=== PATIENT | male | born 1950 | race Caucasian/White ===

== ENCOUNTER 2018-10-08 16:05 | Inpatient (IN) | payer OTHER ==
[2018-10-08 16:11] VITALS: BMI 47.9
--- NOTE | 2018-10-08 16:13 | PDOC ---
Rapid Medical Evaluation Chief Complaint: Shortness of Breath Time Seen by Provider: 10/08/18 16:09 Medical Evaluation: 10/08/18 16:10 The patient presents to the ED: worsening weakness, sob, and dizziness, hx of copd, chf On brief exam: 92 % rA, decreased bs at bases Pt ordered for : labs, o2, cxr, ekg Pt to proceed to the ED Discharge Disposition - Diagnosis Shortness of breath - Referrals - Patient Instructions - Post Discharge Activity
--- NOTE | 2018-10-08 17:00 | PDOC ---
History of Present Illness - General Chief Complaint: Shortness of Breath Stated Complaint: SHORTNESS OF BREATH, WEAK Time Seen by Provider: 10/08/18 16:09 History Source: Patient Exam Limitations: No Limitations - History of Present Illness Initial Comments: 10/08/18 16:59 The patient is a 67M with a PMH of COPD and asthma who presents to the ER for oxygen. The patient was with his who is being evaluated and asked for oxygen as he is on 2L NC at home. He was told he had to register in order to get oxygen and so he registered. He denies any acute complaints including CP, SOB, fevers, chills, nausea, vomiting, cough. Past History - Past Medical History Allergies/Adverse Reactions: Allergies Allergy/AdvReac Type Severity Reaction Status Date / Time No Known Allergies Allergy Verified 10/08/18 16:11 COPD: Yes (CHF) HTN: Yes Hypercholesterolemia: Yes Other medical history: INSOMNIA, INTUBATED 03/2017 FOR SOB - Surgical History Appendectomy: Yes - Suicide/Smoking/Psychosocial Hx Smoking History: Never smoked Information on smoking cessation initiated: No Hx Alcohol Use: No Drug/Substance Use Hx: No Substance Use Type: None Review of Systems - Review of Systems Able to Perform ROS?: Yes Comments:: 10/08/18 17:06 GENERAL/CONSTITUTIONAL: No fever or chills. No weakness. HEAD, EYES, EARS, NOSE AND THROAT: No change in vision. No ear pain or discharge. No sore throat. CARDIOVASCULAR: No chest pain, palpitations, or lightheadedness. RESPIRATORY: No cough, wheezing, shortness of breath, or hemoptysis. GASTROINTESTINAL: No nausea, vomiting, diarrhea, constipation, or abdominal pain. GENITOURINARY: No dysuria, frequency, hematuria, or change in urination. MUSCULOSKELETAL: No joint or muscle swelling or pain. No neck or back pain. SKIN: No rash or lesions. NEUROLOGIC: No headache, numbness, tingling, focal weakness, loss of consciousness, or change in strength/sensation. Is the patient limited Estonian proficient: No *Physical Exam - Vital Signs Last Vital Signs Temp Pulse Resp BP Pulse Ox 98.4 F 75 18 130/55 L 92 L 10/08/18 16:07 10/08/18 16:07 10/08/18 16:07 10/08/18 16:07 10/08/18 16:07 - Physical Exam Comments: 10/08/18 17:06 GENERAL: Well developed, well nourished. Morbidly obese. Awake and alert. No acute distress. HEENT: Normocephalic, atraumatic. Hearing grossly normal. Moist mucous membranes. PERRLA, EOMI. No conjunctival pallor. Sclera are non-icteric. NECK: Supple. Full ROM. No JVD. CARDIOVASCULAR: Regular rate and rhythm. No murmurs, rubs, or gallops. PULMONARY: No evidence of respiratory distress. Lungs clear to auscultation bilaterally. No wheezing, rales or rhonchi. ABDOMINAL: Soft. Non-tender. Non-distended. No rebound or guarding. GENITOURINARY: No CVA tenderness bilaterally. MUSCULOSKELETAL: Normal range of motion at all joints. No bony deformities or tenderness. EXTREMITIES: Lips are blue-tinged. No cyanosis. No clubbing. No edema. No calf tenderness or swelling. SKIN: Warm and dry. Normal capillary refill. No rashes. No jaundice. NEUROLOGICAL: Alert, awake, appropriate. Cranial nerves 2-12 grossly intact. Normal speech. Gait is normal without ataxia with walker. PSYCHIATRIC: Cooperative. Good eye contact. Appropriate mood and affect. Heart Score/ECG Review #1 ECG reviewed & interpreted by me at: 17:27 General ECG Interpretation: Sinus Rhythm, Normal Rate, Normal Intervals, No acute ischemic changes Compared to previous ECG there are: Previous ECG unavail 10/08/18 17:28 NSR vent rate 75 SD 168 QRS 142 QTc 481 No STD or JOHNY No signs of acute ischemia RBBB noted PVC's noted No priors ED Treatment Course - LABORATORY CBC & Chemistry Diagram: 10/08/18 16:50 10/08/18 16:50 Medical Decision Making - Medical Decision Making 10/08/18 17:08 The patient is a 67M with a PMH of COPD who presents to the ER requesting oxygen as he is waiting for his to finish her evaluation. He denies any acute complaints. RME ordered labwork which we will continue as the patient later expressed that he has a history of pleural effusion. Pending labs, EKG, and CXR. 10/08/18 19:08 Labs show WILLIAM, hypokalemia, and CXR shows bibasilar consolidation. Will treat as COPD exacerbation and microblog for admission. 10/08/18 19:20 I have endorsed the pt to Dr. Irwin for admission under Dr. Marie. *DC/Admit/Observation/Transfer Diagnosis at time of Disposition: Shortness of breath, COPD with exacerbation - Discharge Dispostion Condition at time of disposition: Guarded Decision to Admit order: Yes - Referrals Referrals: ON STAFF,NOT [Primary Care Provider] - - Patient Instructions - Post Discharge Activity
[2018-10-08 17:01] LABS: BASO % 0.2 % (0-2.0); EOS % 1.2 % (0-4.5); HEMATOCRIT 48.5 % (35.4-49); HEMOGLOBIN 15.9 GM/dL (11.7-16.9); LYMPH % 5.8 % (8-40); MCH 30.8 pg (25.7-33.7); MCHC 32.7 g/dl (32.0-35.9); MEAN CELL VOLUME 94.2 fl (80-96); MEAN PLT VOLUME 11.4 fl (7.5-11.1); MONO % 6.5 % (3.8-10.2); NEUT % 86.3 % (42.8-82.8); PLATELET COUNT 197 K/MM3 (134-434); RBC 5.15 M/mm3 (4.00-5.60); RDW 14.3 % (11.9-15.9); WHITE BLOOD COUNT 15.1 K/mm3 (4.0-10.0)
[2018-10-08 17:26] LABS: URINE APPEARANCE CLEAR; URINE BILIRUBIN NEGATIVE (<2.0 mg/dL); URINE COLOR LTYELLOW; URINE GLUCOSE (UA) NEGATIVE (NEGATIVE); URINE KETONE NEGATIVE (NEGATIVE); URINE LEUK ESTERASE 1+ (NEGATIVE); URINE NITRITE NEGATIVE (NEGATIVE); URINE PROTEIN NEGATIVE (NEGATIVE); URINE UROBILINOGEN NEGATIVE mg/dL (0.2-1.0)
[2018-10-08 17:44] LABS: EPI CELLS RARE /HPF (FEW); URINE HYALINE CAST 14 /lpf
[2018-10-08 17:58] LABS: ALBUMIN 3.9 g/dl (3.4-5.0); CREATININE 1.7 mg/dL (0.55-1.3)
[2018-10-08] MEDS ORDERED: POTASSIUM CHLORIDE TABS 20 MEQ TABLET.ER (FP) PO ONE (18:12)
--- NOTE | 2018-10-08 18:15 | PDOC ---
Attending Attestation - Resident Resident Name: Medarod Schmitt - ED Attending Attestation I have performed the following: I have examined & evaluated the patient, The case was reviewed & discussed with the resident, I agree w/resident's findings & plan - HPI HPI: 10/08/18 18:14 Mr Almanzar is a 67 year old male with a significant past medical history of COPD ( on 2L O2) and asthma who presents to the emergency department with shortness of breath, requesting oxygen. The patient reports that he was sitting with his in the ED when he began to feel an onset of shortness of breath. The patient reports that he is usually on 2 liter of oxygen 24 hours a day. He denies any other symptoms. He denies any fever, chills, nausea, vomiting, diarrhea, constipation or urinary symptoms. He denies any chest pain, headache or dizziness. The patient denies any other complaints. 10/08/18 19:40 - Physicial Exam PE: 10/08/18 19:40 NAD, well appearing, eating comfortably, no respiratory distress, on supp O2. PERRL, EOMI, MMM, nl conjunctiva, anicteric; neck supple. lungs with decreased BS bilaterally, poor inspiratory effort. RRR, abdomen soft obese nontender. SPARKS x4, no focal neuro deficits. No peripheral edema. normal color for ethnicity, WWP. - Medical Decision Making 10/08/18 19:41 67 YOM with sob/ with similar sx being treated for pna Vital signs reviewed, wnl. placed on supp O2, borderline hypoxia noted on baseline 2 liters Prior notes reviewed, including admissions, discharges and consultations. laboratory results and imaging reviewed, basic labs and lytes wnl, notable for mild hypoK repleted with PO potassium, leukocytosis of 15K. UA_negative, unremarkable CXR_atelectasis vs consolidation vs effusion in left lung base, otherwise, enlarged silhouette Cardiac panel_neg trop, nonspecific elevations in ck level. low bnp, less likely fluid overload EKG normal sinus rhythm, no interval abnormalities, narrow QRS, ST and T wave segments and morphology normal. Nonspecific T wave abnormalities ED course: no acute events, remained stable and well appearing. Clinically improved after interventions, including duoneb, steroids, IV abx (cef/doxy), potassium repletion and fluids. Dispo: Admit for COPD exac vs pneumonia.. Discussed results and management plan with pt and family member at bedside, agree with impression and plan 10/08/18 19:43 10/08/18 19:43
[2018-10-08] MEDS ORDERED: KCL 10 MEQ IVPB 10 MEQ/100 ML INFUS.BAG IVPB ONE ×2 (18:34→19:59)
[2018-10-08] MEDS ORDERED: POTASSIUM CHLORIDE TABS 10 MEQ TABLET.ER (FP) ONE (18:35)
[2018-10-08 18:39] LABS: ALK PHOS 121 U/L (45-117); ANION GAP 10 MMOL/L (8-16); BILIRUBIN,TOTAL 0.8 mg/dL (0.2-1); BLOOD UREA NITROGEN 40 mg/dL (7-18); CHLORIDE 84 mmol/L (98-107); CO2 42 mmol/L (21-32); GLUCOSE,RANDOM 98 mg/dL (74-106); N-TERMINAL BNP 155.2 pg/ml (5-125); SGOT/AST 36 U/L (15-37); SGPT/ALT 38 U/L (13-61); SODIUM 136 mmol/L (136-145); TOT PROT 7.6 g/dl (6.4-8.2)
[2018-10-08] MEDS ORDERED: ALBUTEROL SO4 2.5/IPRATROPIUM 0.5 INH SOL 3 ML VIAL.NEB. NEB ONE ×2 (18:58→19:58)
[2018-10-08] MEDS ORDERED: methylPREDNISolone NA SUCC 125 MG/2 ML VIAL IVPUSH ONE (18:58)
[2018-10-08] MEDS ORDERED: CEFTRIAXONE 1,000 MG in DEXTROSE 5%-WATER - 50 ML IVPB ONE (18:58)
[2018-10-08] MEDS: KCL 10 MEQ IVPB 10 MEQ/100 ML INFUS.BAG IVPB SCH (19:05)
--- NOTE | 2018-10-08 19:21 | PN ---
Teaching Attending Note Name of Resident: Julian Talavera ATTENDING PHYSICIAN STATEMENT I saw and evaluated the patient. I reviewed the resident's note and discussed the case with the resident. I agree with the resident's findings and plan as documented. SUBJECTIVE: Patient is a 67 year old man with a PMH of COPD/asthma who presents to the ER for oxygen. The patient was with his who is being evaluated and asked for oxygen as he is on 2L NC at home. He was told he had to register in order to get oxygen and so he registered. He denies any acute complaints including CP, SOB, fevers, chills, nausea, vomiting, cough. He has had chronic weakness, gait instability and frequent falls - none of which have been investigated. Remembers that he is on a diuretic, but his does not remember any of his other medications. Unknown if he is on steroids. Uses a walker at home. OBJECTIVE: Alert and morbidly obese. Vital Signs Period Temp Pulse Resp BP Sys/Mason Pulse Ox Last 24 Hr 98.4 F 75 18 130/55 92 HEENT: No Jaundice, eye redness or discharge, PERRLA, EOMI. Normocephalic, atraumatic. External ears are normal and hearing is grossly intact. No nasal discharge. Neck: Supple, nontender. No palpable adenopathy or thyromegaly. No JVD Chest: Good effort. Diminished breath sounds in both bases. Heart: Regular. No S3, rub or murmur Abdomen: Not distended, soft, nontender and no HSM. No rebound or guarding. Normoactive bowel sounds. Ext: Peripheral pulses intact. No leg edema. Skin: Warm and dry. No petechiae, rash or ecchymosis. Neuro: Alert. Oriented x3. Unsteady gait. CN 2-12 grossly intact. Sensation grossly intact in all four extremities and DTR are symmetric. Current Medications Generic Name Dose Route Start Last Admin Trade Name Freq PRN Reason Stop Dose Admin Potassium Chloride 10 meq in 100 mls @ 100 mls/hr 10/08/18 18:15 Potassium Chloride 10 Meq Premix Ivpb - IVPB 10/08/18 20:14 Q60M YOHNANES Ceftriaxone Sodium 1,000 mg/ 50 mls @ 100 mls/hr 10/08/18 18:58 Dextrose IVPB 10/08/18 19:27 ONCE ONE Abnormal Lab Results 10/08/18 10/08/18 10/08/18 16:50 16:50 17:16 WBC 15.1 H MPV 11.4 H Absolute Neuts (auto) 13.1 H Neutrophils % 86.3 H Lymphocytes % 5.8 L Potassium 3.0 L Chloride 84 L Carbon Dioxide 42 H BUN 40 H Creatinine 1.7 H Alkaline Phosphatase 121 H Creatine Kinase 352 H CK-MB (CK-2) 7.1 H B-Natriuretic Peptide 155.2 H Ur Specific [place] 1.009 L Ur Leukocyte Esterase 1+ H ASSESSMENT AND PLAN: 1. Weakness/Pleural effusion? - CXR shows bibasilar consolidation, more on the left. "COPD" may explain metabolic alkalosis. Hypokalemia and metabolic alkalosis may be partly due to excessive diuresis, all of which may result in weakness. Will rule out a chest infection in view of CXR findings. Get chest CT , head CT (to investigate ataxia), serum Mg+, phosphate and give KCL. Implement fall precautions and consult PT and pulmonary and neurology. Will repeat CBC and await chest CT results before decision on use of antibiotics. Will strive to get his medication list from family/pharmacy. 2. WILLIAM with hypokalemia - WILLIAM likely due to dehydration. Will get renal sonogram and avoid nephrotoxic agents such as NSAIDS, aminoglycosides, contrast dyes and certain Alternative medicine products. 3. Morbid Obesity - Will provide patient all the necessary assistance, counseling and positive reinforcement to facilitate weight loss. Consult technical producer. 4. DVT prophylaxis - Heparin 5000u sq tid. 5. Advance directives - Full code
[2018-10-08] MEDS ORDERED: DOXYCYCLINE HYCLATE 100 MG CAPSULE PO ONE ×2 (19:43→19:58)
[2018-10-08] MEDS ORDERED: methylPREDNISolone NA SUCC 125 MG/2 ML VIAL ONE (19:59)
[2018-10-08] MEDS ORDERED: CEFTRIAXONE 1 GM/50 ML BAG ONE (19:59)
[2018-10-08 21:54] LABS: MAGNESIUM 2.5 mg/dL (1.8-2.4); PHOSPHOROUS 3.3 mg/dL (2.5-4.9)
[2018-10-08] MEDS ORDERED: HEPARIN NA (PORCINE) 5,000 UNITS/ML 1ML VIAL ONE (22:28)
[2018-10-08] MEDS: HEPARIN NA (PORCINE) 5,000 UNITS/ML 1ML VIAL SQ SCH (22:35)
[2018-10-08 22:40] LABS: HEMATOCRIT 40.4 % (35.4-49); HEMOGLOBIN 13.4 GM/dL (11.7-16.9); MCH 31.3 pg (25.7-33.7); MCHC 33.1 g/dl (32.0-35.9); MEAN CELL VOLUME 94.5 fl (80-96); MEAN PLT VOLUME 11.5 fl (7.5-11.1); RBC 4.28 M/mm3 (4.00-5.60); RDW 14.1 % (11.9-15.9); WHITE BLOOD COUNT 14.5 K/mm3 (4.0-10.0)
[2018-10-08 23:15] LABS: PLATELET COUNT 132 K/MM3 (134-434)
--- NOTE | 2018-10-09 00:59 | HP ---
CHIEF COMPLAINT: weakness PCP: unable to obtain. patient does not know his primary care provider HISTORY OF PRESENT ILLNESS: Patient is a 67 year old male with history of COPD on home oxygen 2L daily, and asthma, congestive heart failure, obstructive sleep apnea, presents with complaint of weakness over past year. States he was hospitalized in 2017 and intubated in ICU (does not recall the hospital) and since extubation has had severe weakness worst in lower extremities. He states he has been intubated only once, in 2017. Takes ventolin inhaler two puffs a day, daily. States he now cannot walk more than 10-15 feet using a walker, without becoming weak, short of breath, and needing to sit down and rest. Prior, he was able to walk approx 30-40 feet on level ground. Patient endorses that he has fallen twice over the past three weeks. Most recent fall was two weeks ago, as patient had been standing for one minute, and decided to walk to bathroom. Patient denies any prodromal symptoms of lightheadedness, dizzyness, changes in vision, chest pain, palpitations, shortness of breath. Does not recall if he hit his head, and does not recall losing consciousness. Today denies headache, fevers, chills, shortness of breath, chest pain, palpitations, abdominal pain, nausea, vomiting, diarrhea, constipation, fall, loss of consciousness. He is uncertain which medications he takes at home. Notes he takes a "water pill" but uncertain of the name. ER course was notable for: (1) Rocephin 1 gram IV (2) KCL 10meq IV, K-dur 40 meq PO (3) PAST MEDICAL HISTORY: COPD, asthma, WES, CHF PAST SURGICAL HISTORY: appendectomy Social History: Smoking: former smoker. admits 10-15 cigarettes/ day for 15 years. Quit two years ago. 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 Family History: Mother: unknown "stomach issues" Father: BPH. at 78 y/o Allergies No Known Allergies Allergy (Verified 10/08/18 16:11) HOME MEDICATIONS: Home Medications Medication Instructions Recorded Unobtainable 10/08/18 REVIEW OF SYSTEMS As per HPI PHYSICAL EXAMINATION Vital Signs - 24 hr 10/08/18 10/08/18 16:07 19:27 Temperature 98.4 F Pulse Rate 75 Pulse Rate [ 76 Right Radial] Respiratory 18 20 Rate Blood Pressure 130/55 L Blood Pressure 125/65 [Left Arm] O2 Sat by Pulse 92 L 96 Oximetry (%) GENERAL: Awake, alert, and fully oriented, in no acute distress. HEAD: Normal with no signs of trauma. EYES: Pupils equal, round and reactive to light, extraocular movements intact, sclera anicteric, conjunctiva injected left more than right. No pain with extraocular movements. EARS, NOSE, THROAT: Oropharynx clear without exudates. Moist mucous membranes. NECK: Normal range of motion, supple without lymphadenopathy, JVD, or masses. LUNGS: Good inspiratory effort, however poor air entry b/l. Expiratory wheezing auscultated b/l upper lungs left more than right. No accessory muscles of respiration. HEART: Distant heart sounds. Regular rate and rhythm, normal S1 and S2 without murmur, rub or gallop. ABDOMEN: Obese. Soft, nontender to light and deep palpation. Normoactive bowel sounds X4 quadrants. No guarding, no rebound tenderness. No hepatomegaly or splenomegaly. MUSCULOSKELETAL: Normal range of motion at all joints. No bony deformities or tenderness. UPPER EXTREMITIES: 2+ radial pulses b/l, warm, well-perfused. Strength 5/5 b/l upper extremities. LOWER EXTREMITIES: 2+ dorsalis pedis pulses b/l, warm, well-perfused. No calf tenderness. 1+ peripheral edema b/l. Strength 5/5 b/l upper extremities. NEUROLOGICAL: Cranial nerves II-XII intact. Normal speech. PSYCHIATRIC: Cooperative. Good eye contact. Appropriate mood and affect upon my encounter today. SKIN: Warm, dry. Chronic hyperpigmentation skin changes noted b/l lower extremities. Laboratory Results - last 24 hr 10/08/18 10/08/18 10/08/18 16:50 16:50 16:50 WBC 15.1 H RBC 5.15 Hgb 15.9 Hct 48.5 MCV 94.2 MCH 30.8 MCHC 32.7 RDW 14.3 Plt Count 197 MPV 11.4 H Absolute Neuts (auto) 13.1 H Neutrophils % 86.3 H Lymphocytes % 5.8 L Monocytes % 6.5 Eosinophils % 1.2 Basophils % 0.2 Nucleated RBC % 0 Platelet Comment Sodium 136 Potassium 3.0 L Chloride 84 L Carbon Dioxide 42 H Anion Gap 10 BUN 40 H Creatinine 1.7 H Creat Clearance w eGFR 40.53 Random Glucose 98 Calcium 9.0 Phosphorus 3.3 Magnesium 2.5 H Total Bilirubin 0.8 AST 36 ALT 38 Alkaline Phosphatase 121 H Creatine Kinase 352 H Creatine Kinase Index 2.0 Cancelled CK-MB (CK-2) 7.1 H Cancelled Troponin I < 0.02 B-Natriuretic Peptide 155.2 H Total Protein 7.6 Albumin 3.9 Urine Color Urine Appearance Urine pH Ur Specific [place] Urine Protein Urine Glucose (UA) Urine Ketones Urine Blood Urine Nitrite Urine Bilirubin Urine Urobilinogen Ur Leukocyte Esterase Urine WBC (Auto) Urine RBC (Auto) Ur Epithelial Cells Hyaline Casts 10/08/18 10/08/18 17:16 22:25 WBC 14.5 H RBC 4.28 Hgb 13.4 Hct 40.4 D MCV 94.5 MCH 31.3 MCHC 33.1 RDW 14.1 Plt Count 132 L D MPV 11.5 H Absolute Neuts (auto) Neutrophils % Lymphocytes % Monocytes % Eosinophils % Basophils % Nucleated RBC % Platelet Comment Rare giant plts Sodium Potassium Chloride Carbon Dioxide Anion Gap BUN Creatinine Creat Clearance w eGFR Random Glucose Calcium Phosphorus Magnesium Total Bilirubin AST ALT Alkaline Phosphatase Creatine Kinase Creatine Kinase Index CK-MB (CK-2) Troponin I B-Natriuretic Peptide Total Protein Albumin Urine Color Ltyellow Urine Appearance Clear Urine pH 5.0 Ur Specific [place] 1.009 L Urine Protein Negative Urine Glucose (UA) Negative Urine Ketones Negative Urine Blood Negative Urine Nitrite Negative Urine Bilirubin Negative Urine Urobilinogen Negative Ur Leukocyte Esterase 1+ H Urine WBC (Auto) 4 Urine RBC (Auto) None Ur Epithelial Cells Rare Hyaline Casts 14 ASSESSMENT/PLAN: Patient is a 67 year old male with history of COPD on home oxygen 2L daily, and asthma, congestive heart failure, obstructive sleep apnea, presents with complaint of weakness over past year. Weakness, shortness of breath -Unclear etiology, likely multifactorial. -CXR chest shows basilar atelectatic changes. No acute process noted -CT chest shows paraseptal bullous changes in b/l upper lobes suggestive of paraseptal emphysema. F/U official reading. -CT head shows no acute pathology upon preliminary reading. Will follow official read. -BNP 155. Will F/U cardiac ECHO -Leukocytosis at 15.0 -> 14.5 on repeat CBC. Uncertain if patient takes steroids at home. No clear infectious focus. -Infectious disease consult (Dr. Farley) -Pulmonology consult (Dr. Gutierrez) -Neurology consult Dr. Tomlin -Physical therapy evaluation -Fall precautions. -Cardiac monitoring Acute kidney injury -Uncertain Cr baseline. WILLIAM may be secondary to dehydration, and diuretic use. -F/U bilateral renal US -Consider nephrology consult Hypokalemia -May be secondary to diuretic use. Unclear which diuretic patient takes at home , and will require medicine reconciliation in AM. -Repleted with KCL 40mg PO in ED . Follow CMP Morbid obesity -control and recovery combat rescue consult -Counselled patient regarding diet with lean meats, vegetables, low fat and sodium. FEN -No IV fluids. Encourage judicious oral hydration. -Hypokalemia. Follow CMP -Regular diet Prophylaxis -Heparin 5000u subq TID Disposition -Admit to telemetry floor Visit type - Emergency Visit Emergency Visit: Yes ED Registration Date: 10/08/18 Care time: The patient presented to the Emergency Department on the above date and was hospitalized for further evaluation of their emergent condition. - New Patient This patient is new to me today: Yes Date on this admission: 10/09/18 - Critical Care Critical Care patient: No
[2018-10-09 06:27] LABS: HEMATOCRIT 46.7 % (35.4-49); HEMOGLOBIN 14.9 GM/dL (11.7-16.9); MCH 30.3 pg (25.7-33.7); MEAN CELL VOLUME 94.9 fl (80-96); MEAN PLT VOLUME 11.8 fl (7.5-11.1); PLATELET COUNT 164 K/MM3 (134-434); RBC 4.92 M/mm3 (4.00-5.60); WHITE BLOOD COUNT 12.4 K/mm3 (4.0-10.0)
[2018-10-09] MEDS ORDERED: HEPARIN NA (PORCINE) 5,000 UNITS/ML 1ML VIAL ONE (06:31)
[2018-10-09] MEDS: HEPARIN NA (PORCINE) 5,000 UNITS/ML 1ML VIAL SQ SCH ×3 (06:34→21:50)
[2018-10-09 06:58] LABS: ALBUMIN 3.6 g/dl (3.4-5.0); ALK PHOS 115 U/L (45-117); ANION GAP 12 MMOL/L (8-16); BILIRUBIN,TOTAL 0.6 mg/dL (0.2-1); BLOOD UREA NITROGEN 48 mg/dL (7-18); CALCIUM 8.9 mg/dL (8.5-10.1); CHLORIDE 87 mmol/L (98-107); CHOLESTEROL 99 mg/dL (50-200); CO2 38 mmol/L (21-32); CREATININE 1.8 mg/dL (0.55-1.3); GLUCOSE,RANDOM 160 mg/dL (74-106); HDL CHOLESTEROL 41 mg/dL (40-60); MAGNESIUM 2.5 mg/dL (1.8-2.4); PHOSPHOROUS 2.3 mg/dL (2.5-4.9); POTASSIUM 3.2 mmol/L (3.5-5.1); SGOT/AST 31 U/L (15-37); SGPT/ALT 38 U/L (13-61); SODIUM 136 mmol/L (136-145); TOT PROT 7.2 g/dl (6.4-8.2); TRIGLYCERIDES 77 mg/dL (0-150)
[2018-10-09] MEDS ORDERED: NAPH,MB-DB/K PH,MBDB POWDER PACKET PO ONE (08:08)
--- NOTE | 2018-10-09 08:36 | PN ---
Teaching Attending Note Name of Resident: Glenn Velasquez ATTENDING PHYSICIAN STATEMENT I saw and evaluated the patient. I reviewed the resident's note and discussed the case with the resident. I agree with the resident's findings and plan as documented. SUBJECTIVE: Patient is comfortable with no acute , patient is oxygen dependent. OBJECTIVE: Vital Signs Temperature 98.4 F 10/09/18 06:09 Pulse Rate 69 10/09/18 06:09 Respiratory Rate 18 10/09/18 06:09 Blood Pressure 103/59 L 10/09/18 06:09 O2 Sat by Pulse Oximetry (%) 95 10/09/18 06:09 GENERAL: Awake, alert, and fully oriented, in no acute distress. HEAD: Normal with no signs of trauma. EYES: CRISTHIAN, EOMI,conjunctiva injected left more than right. EARS, NOSE, THROAT: Oropharynx clear without exudates. MMM NECK: Normal range of motion, supple ,no jvD, or masses. LUNGS: decreased BS BL, Expiratory wheezing auscultated left lower . HEART: RRR, normal S1 and S2 without murmur, rub or gallop. ABDOMEN: Obese. large abdomen, soft, NT, BS positive x 4 quadrants. No guarding , no rebound tenderness. MUSCULOSKELETAL: Normal range of motion at all joints. No bony deformities or tenderness. EXTREMITIES: 2+ radial pulses b/l, warm, well-perfused. Strength 5/5 b/l upper extremities. NEUROLOGICAL: Cranial nerves II-XII intact. Normal speech. PSYCHIATRIC: Cooperative. Good eye contact. SKIN: Warm, dry. Chronic hyperpigmentation skin changes of LEs. CBCD WBC 12.4 K/mm3 (4.0-10.0) H 10/09/18 06:06 RBC 4.92 M/mm3 (4.00-5.60) 10/09/18 06:06 Hgb 14.9 GM/dL (11.7-16.9) 10/09/18 06:06 Hct 46.7 % (35.4-49) D 10/09/18 06:06 MCV 94.9 fl (80-96) 10/09/18 06:06 MCHC 32.0 g/dl (32.0-35.9) 10/09/18 06:06 RDW 14.0 % (11.9-15.9) 10/09/18 06:06 Plt Count 164 K/MM3 (134-434) D 10/09/18 06:06 MPV 11.8 fl (7.5-11.1) H 10/09/18 06:06 CMP Sodium 136 mmol/L (136-145) 10/09/18 06:06 Potassium 3.2 mmol/L (3.5-5.1) L 10/09/18 06:06 Chloride 87 mmol/L (98-107) L 10/09/18 06:06 Carbon Dioxide 38 mmol/L (21-32) H 10/09/18 06:06 Anion Gap 12 MMOL/L (8-16) 10/09/18 06:06 BUN 48 mg/dL (7-18) H 10/09/18 06:06 Creatinine 1.8 mg/dL (0.55-1.3) H 10/09/18 06:06 Creat Clearance w eGFR 37.94 (>60) 10/09/18 06:06 Random Glucose 160 mg/dL (74-106) H 10/09/18 06:06 Calcium 8.9 mg/dL (8.5-10.1) 10/09/18 06:06 Total Bilirubin 0.6 mg/dL (0.2-1) 10/09/18 06:06 AST 31 U/L (15-37) 10/09/18 06:06 ALT 38 U/L (13-61) 10/09/18 06:06 Alkaline Phosphatase 115 U/L (45-117) 10/09/18 06:06 Total Protein 7.2 g/dl (6.4-8.2) 10/09/18 06:06 Albumin 3.6 g/dl (3.4-5.0) 10/09/18 06:06 CARDIAC ENZYMES Creatine Kinase 352 IU/L (26-308) H 10/08/18 16:50 Troponin I < 0.02 ng/ml (0.00-0.05) 10/08/18 16:50 Current Medications Generic Name Dose Route Start Last Admin Trade Name Freq PRN Reason Stop Dose Admin Heparin Sodium (Porcine) 5,000 unit 10/08/18 22:15 10/09/18 06:34 Heparin - SQ 5,000 unit TID YOHANNES Administration Potassium Phos/Sodium Phos 2 packet 10/09/18 08:08 Phos-Nak Packet - PO 10/09/18 08:09 ONCE ONE CXR shows bibasilar consolidation ASSESSMENT AND PLAN: Patient is a 67 year old male with history of COPD on home oxygen 2L daily, congestive heart failure, obstructive sleep apnea, presents with complaint of weakness and shortness of breath. # COPD with questionable Pleural effusion on 2 Liter oxygen . Incentive Spirometry and Ambulate ,Should be on LAMA/LABA on discharge, PFTs as an outpatient # WILLIAM with hypokalemia - s/p renal sonogram within Normal level , avoid nephrotoxic agents. will replete Potassium # Morbid Obesity - diet and weight loss recommended. DVT prophylaxis - Heparin 5000u sq tid. possible discharge in am
--- NOTE | 2018-10-09 11:10 | EKG ---
Test Reason : Blood Pressure : / mmHG Vent. Rate : 076 BPM Atrial Rate : 076 BPM P-R Int : 168 ms QRS Dur : 142 ms QT Int : 428 ms P-R-T Axes : 069 013 032 degrees QTc Int : 481 ms SINUS RHYTHM WITH OCCASIONAL PREMATURE VENTRICULAR COMPLEXES RIGHT BUNDLE BRANCH BLOCK ABNORMAL ECG NO PREVIOUS ECGS AVAILABLE Confirmed by MARY PINTO MD ([id number]) on 10/09/2018 11:10:17 AM Referred By: Confirmed By:MARY PINTO MD
--- NOTE | 2018-10-09 12:20 | ECHO ---
Name: KAMILLE ASHLEY Exam:Adult Echocardiogram Study Date: 10/09/2018 10:38 AM Age: 67 yrs Reason For Study: SHORTNESS OF BREATH Height: 68 in Weight: 315 lb BSA: 2.5 m2 MMode/2D Measurements & Calculations IVSd: 0.90 cm Ao root diam: 2.8 cm LVIDd: 4.7 cm LA dimension: 3.9 cm LVIDs: 3.0 cm LVPWd: 0.90 cm EDV(Teich): 101.3 ml ESV(Teich): 34.9 ml Doppler Measurements & Calculations MV E max homar: 63.7 cm/sec TR max homar: 213.6 cm/sec MV A max homar: 80.0 cm/sec TR max P.2 mmHg MV E/A: 0.80 MV dec time: 0.25 sec Med Peak E' Homar: 4.5 cm/sec Med E/e': 14.2 Lat Peak E' Homar: 6.3 cm/sec Lat E/e': 10.2 Procedure A complete two-dimensional transthoracic echocardiogram was performed (2D, M-mode, Doppler and color flow Doppler). The study was technically difficult with many images being suboptimal in quality. Left Ventricle The left ventricular size, thickness and function are normal. The left ventricular ejection fraction is normal. Ejection Fraction = 60-65%. Regional wall motion abnormalities cannot be excluded due to limi kaleigh visualization. Right Ventricle The right ventricle is grossly normal size. The right ventricular systolic function is grossly normal . Atria Normal left and right atrial size and function. Mitral Valve There is no mitral regurgitation noted. Tricuspid Valve There is trace tricuspid regurgitation. There was insufficient TR detected to calculate RV systolic p ressure. Aortic Valve No hemodynamically significant valvular aortic stenosis. No aortic regurgitation is present. Pulmonic Valve There is no pulmonic valvular regurgitation. Great Vessels The aortic root is normal size. Pericardium/Pleura There is no pericardial effusion. Interpretation Summary The study was technically difficult with many images being suboptimal in quality. The left ventricular size, thickness and function are normal The right ventricle is grossly normal size. The right ventricular systolic function is grossly normal. There is trace tricuspid regurgitation. MD Jarrell Samson 10/09/2018 12:20 PM
--- NOTE | 2018-10-09 12:31 | CON.NEURO ---
Consult - History of Present Illness History of Present Illness: 67 year old male with history of COPD on home oxygen 2L daily, and asthma, congestive heart failure, obstructive sleep apnea, presents with complaint of weakness over past year. States he was hospitalized in 2017 and intubated in ICU (does not recall the hospital) and since extubation has had severe weakness worst in lower extremities. He states he has been intubated only once, in 2017. Takes ventolin inhaler two puffs a day, daily. States he now cannot walk more than 10-15 feet using a walker, without becoming weak, short of breath, and needing to sit down and rest. Prior, he was able to walk approx 30-40 feet on level ground. Patient endorses that he has fallen twice over the past three weeks. Most recent fall was two weeks ago, as patient had been standing for one minute, and decided to walk to bathroom. Patient denies any prodromal symptoms of lightheadedness, dizzyness, changes in vision, chest pain, palpitations, shortness of breath. Does not recall if he hit his head, and does not recall losing consciousness. Today denies headache, fevers, chills, shortness of breath, chest pain, palpitations, abdominal pain, nausea, vomiting, diarrhea, constipation, fall, loss of consciousness. He is uncertain which medications he takes at home. Notes he takes a "water pill" but uncertain of the name. HD CT (-) feels like he is walking better today no swallowing issues - Alcohol/Substance Use Hx Alcohol Use: No - Smoking History Smoking history: Never smoked Home Medications - Allergies Allergies/Adverse Reactions: Allergies Allergy/AdvReac Type Severity Reaction Status Date / Time No Known Allergies Allergy Verified 10/08/18 16:11 - Home Medications Home Medications: Ambulatory Orders Albuterol Sulfate [Proair Hfa] 1 puff IH DAILY 10/09/18 Atorvastatin Ca [Lipitor] 40 mg PO DAILY 10/09/18 Budesonide/Formeterol Fumarate [SYMBICORT 160/4.5mcg -] 1 puff IH DAILY Bupropion HCl [Wellbutrin Xl] 300 mg PO DAILY 10/09/18 Finasteride 5 mg PO DAILY 10/09/18 Ipratropium [place] [Atrovent Hfa] 1 puff IH DAILY 10/09/18 Meclizine HCl 25 mg PO BID 10/09/18 Metolazone 2.5 mg PO DAILY 10/09/18 Polyethylene Glycol 3350 [Miralax 119 gm Btl -] 17 gm PO BID 10/09/18 Spironolactone 25 mg PO Q2D 10/09/18 Tamsulosin HCl [Flomax] 0.4 mg PO BID 10/09/18 Tiotropium [place] [Spiriva] 1 puff IH DAILY 10/09/18 Torsemide 30 mg PO BID 10/09/18 traZODone HCL [Trazodone HCl] 50 mg PO DAILY 10/09/18 Physical Exam-Neuro Vital Signs: Vital Signs Temperature 98.2 F 10/09/18 10:30 Pulse Rate 68 10/09/18 10:30 Respiratory Rate 16 10/09/18 10:30 Blood Pressure 96/52 L 10/09/18 10:30 O2 Sat by Pulse Oximetry (%) 94 L 10/09/18 10:30 Labs: CBC, BMP 10/09/18 06:06 10/09/18 06:06 - Neuro Exam Level Of Consciousness: Yes: Alert (EOMI, no focal weakness, no tongue fasculations, reflexes trace ) Imaging - Results Cat Scan: Report Reviewed, Image Reviewed Problem List - Problems (1) Gait abnormality Code(s): R26.9 - UNSPECIFIED ABNORMALITIES OF GAIT AND MOBILITY (2) Asthma Code(s): J45.909 - UNSPECIFIED ASTHMA, UNCOMPLICATED (3) COPD (chronic obstructive pulmonary disease) Code(s): J44.9 - CHRONIC OBSTRUCTIVE PULMONARY DISEASE, UNSPECIFIED (4) Morbid obesity Code(s): E66.01 - MORBID (SEVERE) OBESITY DUE TO EXCESS CALORIES (5) Shortness of breath Code(s): R06.02 - SHORTNESS OF BREATH Assessment/Plan 67 year old male with history of COPD on home oxygen 2L daily, and asthma, congestive heart failure, obstructive sleep apnea, presents with complaint of weakness over past year. States he was hospitalized in 2017 and intubated in ICU (does not recall the hospital) and since extubation has had severe weakness worst in lower extremities. He states he has been intubated only once, in 2017. Takes ventolin inhaler two puffs a day, daily. States he now cannot walk more than 10-15 feet using a walker, without becoming weak, short of breath, and needing to sit down and rest. Prior, he was able to walk approx 30-40 feet on level ground. Patient endorses that he has fallen twice over the past three weeks. Most recent fall was two weeks ago, as patient had been standing for one minute, and decided to walk to bathroom. Patient denies any prodromal symptoms of lightheadedness, dizzyness, changes in vision, chest pain, palpitations, shortness of breath. Does not recall if he hit his head, and does not recall losing consciousness. Today denies headache, fevers, chills, shortness of breath, chest pain, palpitations, abdominal pain, nausea, vomiting, diarrhea, constipation, fall, loss of consciousness. He is uncertain which medications he takes at home. Notes he takes a "water pill" but uncertain of the name. HD CT (-) feels like he is walking better today no swallowing issues IMPRESSION : gait limited by obesity and pulmonary status, no clear evidence of neuromuscular phenomena , motor neuron disease or brain pathology pulm LOUIE neurology sign off DR MACE
[2018-10-09] MEDS ORDERED: ALBUTEROL SO4 2.5/IPRATROPIUM 0.5 INH SOL 3 ML VIAL.NEB. NEB PRN (13:31)
[2018-10-09] MEDS ORDERED: ALBUTEROL SO4 0.083% IH SOL 2.5 MG/3 ML VIAL.NEB. NEB PRN ×2 (13:31→14:44)
--- NOTE | 2018-10-09 15:14 | PN ---
Physical Exam: SUBJECTIVE: Patient seen and examined. Pt. c/o of dizziness, weakness and a mild headache. Pt. endorses being able to walk about 5-6 ft. before feeling short of breath for the last 2 years. Pt. denies using Positive Airway Pressure at night during sleep. Pt. denies ever having sleep study?, Pt. endorses last having a BM 3 days ago. Pt. endorses a weak stream on urination and that it smelled really bad a week ago. Discussed with Pt. who he follows up with and he has multiple doctors across multiple hospitals and boroughs with no coordination of care. OBJECTIVE: Vital Signs Period Temp Pulse Resp BP Sys/Mason Pulse Ox Last 24 Hr 97.8 F-98.4 F 68-77 16-20 92-130/51-71 92-96 GENERAL: The patient is awake, alert, and fully oriented, in no acute distress. EYES: PERRL, sclera anicteric, conjunctiva clear. No ptosis. ENT: Ears normal, nares patent, oropharynx clear without exudates, moist mucous membranes. NECK: Trachea midline, full range of motion, supple. LUNGS: mild wheezes, no crackles, no accessory muscle use. HEART: Regular rate and rhythm, S1, S2 without murmur ABDOMEN: Soft, nontender, nondistended, normoactive bowel sounds, no guarding, no rebound EXTREMITIES: 2+ radial left pulse, warm, well-perfused, no calf tenderness, no edema. NEUROLOGICAL: Cranial nerves II through XII grossly intact. Normal speech, Normal gait-limited d/t Pt.s uneasiness of walking. PSYCH: Normal mood, normal affect. SKIN: Warm, dry, normal turgor Laboratory Results - last 24 hr 10/08/18 10/08/18 10/08/18 16:50 16:50 16:50 WBC 15.1 H RBC 5.15 Hgb 15.9 Hct 48.5 MCV 94.2 MCH 30.8 MCHC 32.7 RDW 14.3 Plt Count 197 MPV 11.4 H Absolute Neuts (auto) 13.1 H Neutrophils % 86.3 H Lymphocytes % 5.8 L Monocytes % 6.5 Eosinophils % 1.2 Basophils % 0.2 Nucleated RBC % 0 Platelet Comment Sodium 136 Potassium 3.0 L Chloride 84 L Carbon Dioxide 42 H Anion Gap 10 BUN 40 H Creatinine 1.7 H Creat Clearance w eGFR 40.53 Random Glucose 98 Hemoglobin A1c % Calcium 9.0 Phosphorus 3.3 Magnesium 2.5 H Total Bilirubin 0.8 AST 36 ALT 38 Alkaline Phosphatase 121 H Creatine Kinase 352 H Creatine Kinase Index 2.0 Cancelled CK-MB (CK-2) 7.1 H Cancelled Troponin I < 0.02 B-Natriuretic Peptide 155.2 H Total Protein 7.6 Albumin 3.9 Triglycerides Cholesterol Total LDL Cholesterol HDL Cholesterol Urine Color Urine Appearance Urine pH Ur Specific [place] Urine Protein Urine Glucose (UA) Urine Ketones Urine Blood Urine Nitrite Urine Bilirubin Urine Urobilinogen Ur Leukocyte Esterase Urine WBC (Auto) Urine RBC (Auto) Ur Epithelial Cells Hyaline Casts 10/08/18 10/08/18 10/09/18 17:16 22:25 06:06 WBC 14.5 H 12.4 H RBC 4.28 4.92 Hgb 13.4 14.9 Hct 40.4 D 46.7 D MCV 94.5 94.9 MCH 31.3 30.3 MCHC 33.1 32.0 RDW 14.1 14.0 Plt Count 132 L D 164 D MPV 11.5 H 11.8 H Absolute Neuts (auto) Neutrophils % Lymphocytes % Monocytes % Eosinophils % Basophils % Nucleated RBC % Platelet Comment Rare giant plts Sodium Potassium Chloride Carbon Dioxide Anion Gap BUN Creatinine Creat Clearance w eGFR Random Glucose Hemoglobin A1c % Calcium Phosphorus Magnesium Total Bilirubin AST ALT Alkaline Phosphatase Creatine Kinase Creatine Kinase Index CK-MB (CK-2) Troponin I B-Natriuretic Peptide Total Protein Albumin Triglycerides Cholesterol Total LDL Cholesterol HDL Cholesterol Urine Color Ltyellow Urine Appearance Clear Urine pH 5.0 Ur Specific [place] 1.009 L Urine Protein Negative Urine Glucose (UA) Negative Urine Ketones Negative Urine Blood Negative Urine Nitrite Negative Urine Bilirubin Negative Urine Urobilinogen Negative Ur Leukocyte Esterase 1+ H Urine WBC (Auto) 4 Urine RBC (Auto) None Ur Epithelial Cells Rare Hyaline Casts 14 10/09/18 10/09/18 06:06 06:06 WBC RBC Hgb Hct MCV MCH MCHC RDW Plt Count MPV Absolute Neuts (auto) Neutrophils % Lymphocytes % Monocytes % Eosinophils % Basophils % Nucleated RBC % Platelet Comment Sodium 136 Potassium 3.2 L Chloride 87 L Carbon Dioxide 38 H Anion Gap 12 BUN 48 H Creatinine 1.8 H Creat Clearance w eGFR 37.94 Random Glucose 160 H Hemoglobin A1c % 6.1 Calcium 8.9 Phosphorus 2.3 L Magnesium 2.5 H Total Bilirubin 0.6 AST 31 ALT 38 Alkaline Phosphatase 115 Creatine Kinase Creatine Kinase Index CK-MB (CK-2) Troponin I B-Natriuretic Peptide Total Protein 7.2 Albumin 3.6 Triglycerides 77 Cholesterol 99 Total LDL Cholesterol 51 HDL Cholesterol 41 Urine Color Urine Appearance Urine pH Ur Specific [place] Urine Protein Urine Glucose (UA) Urine Ketones Urine Blood Urine Nitrite Urine Bilirubin Urine Urobilinogen Ur Leukocyte Esterase Urine WBC (Auto) Urine RBC (Auto) Ur Epithelial Cells Hyaline Casts Active Medications Current Medications Albuterol Sulfate (Ventolin 0.083% Nebulizer Soln -) 1 amp NEB Q4H PRN PRN Reason: SHORT OF BREATH/WHEEZING Heparin Sodium (Porcine) (Heparin -) 5,000 unit SQ TID YOHANNES Last Admin: 10/09/18 13:54 Dose: 5,000 unit Home Medications Medication Instructions Recorded Albuterol Sulfate [Proair Hfa] 1 puff IH DAILY 10/09/18 Atorvastatin Ca [Lipitor] 40 mg PO DAILY 10/09/18 Budesonide/Formeterol Fumarate 1 puff IH DAILY 10/09/18 [SYMBICORT 160/4.5mcg -] Bupropion HCl [Wellbutrin Xl] 300 mg PO DAILY 10/09/18 Finasteride 5 mg PO DAILY 10/09/18 Ipratropium [place] [Atrovent Hfa] 1 puff IH DAILY 10/09/18 Meclizine HCl 25 mg PO BID 10/09/18 Metolazone 2.5 mg PO DAILY 10/09/18 Polyethylene Glycol 3350 [Miralax 17 gm PO BID 10/09/18 119 gm Btl -] Spironolactone 25 mg PO Q2D 10/09/18 Tamsulosin HCl [Flomax] 0.4 mg PO BID 10/09/18 Tiotropium [place] [Spiriva] 1 puff IH DAILY 10/09/18 Torsemide 30 mg PO BID 10/09/18 traZODone HCL [Trazodone HCl] 50 mg PO DAILY 10/09/18 ASSESSMENT/PLAN: Pt. is a 67 y.o. M w/ PMHx. of COPD (on 2L home O2) asthma, CHF?, WES, presents , with admitted , with complaint of weakness for over past year. #Pulmonology -R/O Acute COPD exacerbation w/ associated weakness CXR chest: shows basilar atelectatic changes, mild COPD changes w/ centrilobar emphysema, no acute process noted CT chest: non-specific atelectatic changes, shows paraseptal bullous changes in b/l upper lobes suggestive of paraseptal emphysema. Echo: EF 60-65%, LV: nml size thickness and fxn., RV: nml size and fxn., trace TR WBC's 14.5--> 12.4, medication list still needs to be reconciled ID consult (Dr. Farley) appreciated Pulmonology consult (Dr. Deal) appreciated- recommends starting LABA/LAMA , LFTs and PAP on discharge, no Abx., incentive spirometry. f/u Physical therapy evaluation Fall precautions. c/w Cardiac monitoring #Neurology -Weakness Head CT negative for acute pathology Neurology consult Dr. Tomlin appreciated #Nephrology -Acute kidney injury UA - Uncertain Cr baseline. WILLIAM may be secondary to dehydration, and diuretic use. Renal US: normal kidneys, no acute pathology Nephrology consult (Dr. Farias) appreciated Pt. is on 3 diuretics (Metalazone, Torsemide and Spironolactone) --> c/w Meds reconciliation. #Endocrine -Pre-Diabetes HgBA1c: 6.1% #F/E/N -No IV fluids. Encourage judicious oral hydration. -Monitor for hypokalemia given extensive diuretic hx. replete electrolytes as needed -Na restricted/ diabetic diet Prophylaxis -Heparin 5000u SQ TID Disposition -Admit to telemetry floor Visit type - Emergency Visit Emergency Visit: Yes ED Registration Date: 10/08/18 Care time: The patient presented to the Emergency Department on the above date and was hospitalized for further evaluation of their emergent condition. - New Patient This patient is new to me today: No - Critical Care Critical Care patient: No - Discharge Referral Referred to [facility] Med P.C.: No
--- NOTE | 2018-10-09 15:25 | CON.PULM ---
Consult Consult Specialty:: PULM/CCM Referred by:: Hospitalist Reason for Consultation:: SOB - History of Present Illness Chief Complaint: SOB History of Present Illness: 67 M, COPD on home oxygen 2L [place], supposed asthma (doubtful), congestive heart failure, obstructive sleep apnea diagnosed as NPSG and was placed on CPAP but refused to take the device home according to the , hospitalized in 2017 and was apparently intubated due to AE of COPD. Admitted for worsening M[place]IETA and SOB with minimal exertion. No travel history or sick contacts ( is admitted to and seems to have URI symptoms). No fever or chills. No night sweats or hemoptysis. CT Chest: non-specific dependent atelectasis. No airbronchograms, nodules, masses, effusions - History Source History Provided By: Patient Limitations to Obtaining History: Poor Historian - Past Medical History Pulmonary: Yes: Asthma, Bronchitis, Cancer, COPD, O2 Dependent, Pneumonia, Previously Intubated, Sleep Apnea. No: Pulmonary Embolus, Pulmonary Fibrosis - Alcohol/Substance Use Hx Alcohol Use: No - Smoking History Smoking history: Never smoked Have you smoked in the past 12 months: No Home Medications - Allergies Allergies/Adverse Reactions: Allergies Allergy/AdvReac Type Severity Reaction Status Date / Time No Known Allergies Allergy Verified 10/08/18 16:11 - Home Medications Home Medications: Ambulatory Orders Albuterol Sulfate [Proair Hfa] 1 puff IH DAILY 10/09/18 Atorvastatin Ca [Lipitor] 40 mg PO DAILY 10/09/18 Budesonide/Formeterol Fumarate [SYMBICORT 160/4.5mcg -] 1 puff IH DAILY Bupropion HCl [Wellbutrin Xl] 300 mg PO DAILY 10/09/18 Finasteride 5 mg PO DAILY 10/09/18 Ipratropium [place] [Atrovent Hfa] 1 puff IH DAILY 10/09/18 Meclizine HCl 25 mg PO BID 10/09/18 Metolazone 2.5 mg PO DAILY 10/09/18 Polyethylene Glycol 3350 [Miralax 119 gm Btl -] 17 gm PO BID 10/09/18 Spironolactone 25 mg PO Q2D 10/09/18 Tamsulosin HCl [Flomax] 0.4 mg PO BID 10/09/18 Tiotropium [place] [Spiriva] 1 puff IH DAILY 10/09/18 Torsemide 30 mg PO BID 10/09/18 traZODone HCL [Trazodone HCl] 50 mg PO DAILY 10/09/18 Review of Systems - Review of Systems Constitutional: reports: Malaise, Weakness. denies: Chills, Fever, Loss of Appetite, Night Sweats, Unintentional Wgt. Loss Eyes: reports: No Symptoms HENT: reports: No Symptoms Neck: reports: No Symptoms Cardiovascular: reports: Edema, Shortness of Breath. denies: Chest Pain, Palpitations Respiratory: reports: Cough, Orthopnea, Snoring, SOB, SOB on Exertion, Wheezing. denies: Exercise Intolerance, Hemoptysis Gastrointestinal: reports: No Symptoms Genitourinary: reports: No Symptoms Breasts: reports: No Symptoms Reported Musculoskeletal: reports: Back Pain, Muscle Cramps Integumentary: reports: No Symptoms Neurological: reports: No Symptoms Endocrine: reports: No Symptoms Hematology/Lymphatic: reports: No Symptoms Psychiatric: reports: No Symptoms Physical Exam Vital Sings: Vital Signs Temperature 97.8 F 10/09/18 13:34 Pulse Rate 77 10/09/18 13:34 Respiratory Rate 18 10/09/18 13:35 Blood Pressure 102/62 10/09/18 13:34 O2 Sat by Pulse Oximetry (%) 92 L 10/09/18 13:35 Constitutional: Yes: No Distress, Obese Eyes: Yes: Conjunctiva Clear, EOM Intact HENT: Yes: Atraumatic, Normocephalic Neck: Yes: Supple, Trachea Midline Cardiovascular: Yes: Regular Rate and Rhythm Respiratory: Yes: Cough, Diminished, On Nasal O2, Rhonchi, SOB on Exertion. No : Accessory Muscle Use, Rales, SOB, Stridor, Tachypnea, Wheezes ...Inspection: Yes: WNL ...Clubbing: No Gastrointestinal: Yes: Normal Bowel Sounds, Soft, Abdomen, Obese Musculoskeletal: Yes: Back Pain Extremities: Yes: WNL Edema: Yes Peripheral Pulses WNL: Yes Integumentary: Yes: WNL Neurological: Yes: WNL, Alert, Oriented ...Motor Strength: WNL Psychiatric: Yes: WNL, Alert, Oriented Labs: CBC, BMP 10/09/18 06:06 10/09/18 06:06 Imaging - Results Chest X-ray: Report Reviewed, Image Reviewed Cat Scan: Report Reviewed, Image Reviewed Problem List - Problems (1) COPD (chronic obstructive pulmonary disease) Code(s): J44.9 - CHRONIC OBSTRUCTIVE PULMONARY DISEASE, UNSPECIFIED (2) Asthma Code(s): J45.909 - UNSPECIFIED ASTHMA, UNCOMPLICATED (3) Sleep apnea Code(s): G47.30 - SLEEP APNEA, UNSPECIFIED (4) Morbid obesity Code(s): E66.01 - MORBID (SEVERE) OBESITY DUE TO EXCESS CALORIES (5) Atelectasis of both lungs Code(s): J98.11 - ATELECTASIS (6) URI, acute Code(s): J06.9 - ACUTE UPPER RESPIRATORY INFECTION, UNSPECIFIED (7) Shortness of breath Code(s): R06.02 - SHORTNESS OF BREATH Assessment/Plan Do not suspect PNA COPD: not in acute exacerbation No systemic steroids indicated at this time Monitor off ABX Incentive Spirometry and Ambulate Symptoms and findings on CT seem chronic Should be on LAMA/LABA on discharge No smoking PFTs as an outpatient Will need to get info from previous sleep workup and patient advised the importance of PAP usage at night No Pulmonary contraindication for D/C planning Dr Deal
[2018-10-09] MEDS ORDERED: ACETAMINOPHEN 325 MG TABLET (FP) PO ONE (22:01)
[2018-10-10] MEDS: HEPARIN NA (PORCINE) 5,000 UNITS/ML 1ML VIAL SQ SCH ×2 (05:24→14:02)
[2018-10-10 08:01] LABS: HEMATOCRIT 44.5 % (35.4-49); HEMOGLOBIN 14.2 GM/dL (11.7-16.9); MCH 30.3 pg (25.7-33.7); MCHC 31.9 g/dl (32.0-35.9); MEAN PLT VOLUME 11.8 fl (7.5-11.1); PLATELET COUNT 159 K/MM3 (134-434); RBC 4.68 M/mm3 (4.00-5.60); WHITE BLOOD COUNT 15.4 K/mm3 (4.0-10.0)
[2018-10-10] MEDS ORDERED: TAMSULOSIN HCL 0.4 MG CAP PO SCH (08:30)
[2018-10-10 08:39] LABS: ANION GAP 5 MMOL/L (8-16); BLOOD UREA NITROGEN 45 mg/dL (7-18); CALCIUM 8.4 mg/dL (8.5-10.1); CHLORIDE 91 mmol/L (98-107); CO2 45 mmol/L (21-32); CREATININE 1.4 mg/dL (0.55-1.3); GLUCOSE,RANDOM 85 mg/dL (74-106); SODIUM 141 mmol/L (136-145)
[2018-10-10] MEDS ORDERED: POTASSIUM CHLORIDE TABS 20 MEQ TABLET.ER (FP) PO ONE ×2 (08:45→12:00)
[2018-10-10] MEDS ORDERED: FINASTERIDE 5 MG TABLET (FP) PO SCH (10:00)
[2018-10-10] MEDS ORDERED: IPRATROPIUM BROMIDE IH SCH (10:00)
[2018-10-10] MEDS ORDERED: traZODone HCL 50 MG TABLET (FP) PO SCH (10:00)
[2018-10-10] MEDS ORDERED: BUDESONIDE/FORMETEROL FUMARATE 160/4.5 mcg INHALER IH SCH (10:00)
[2018-10-10] MEDS ORDERED: ALBUTEROL SO4 8 GM HFA INHALER IH SCH (10:00)
[2018-10-10] MEDS ORDERED: SPIRONOLACTONE 25 MG TABLET (FP) PO SCH (10:00)
[2018-10-10] MEDS ORDERED: POLYETHYLENE GLYCOL 3350 119 GM BTL PO SCH (10:00)
[2018-10-10] MEDS ORDERED: MECLIZINE HCL 25 MG TABLET (FP) PO SCH (10:00)
[2018-10-10] MEDS ORDERED: TIOTROPIUM BROMIDE 2.5 MCG (SPIRIVA) RESPIMAT INHALER IH SCH (10:00)
[2018-10-10] MEDS ORDERED: PT OWN MED DRAWER 7, Y5N ONE ×4 (11:10→15:05)
--- NOTE | 2018-10-10 13:07 | PN ---
Progress Note, Physician History of Present Illness: PULMONARY ALERT,OOB-CHAIR,-RESP DISTRESS - Current Medication List Current Medications: Active Medications Albuterol Sulfate (Ventolin 0.083% Nebulizer Soln -) 1 amp NEB Q4H PRN PRN Reason: SHORT OF BREATH/WHEEZING Last Admin: 10/10/18 04:35 Dose: 1 amp Albuterol Sulfate (Ventolin Hfa Inhaler -) 1 puff IH DAILY [facility] Atorvastatin Calcium (Lipitor -) 40 mg PO HS [facility] Budesonide/Formoterol Fumarate (Symbicort 160/4.5mcg -) 1 puff IH DAILY [facility] Last Admin: 10/10/18 10:47 Dose: 1 inh Bupropion HCl (Wellbutrin Xl -) 300 mg PO DAILY [facility] Last Admin: 10/10/18 09:57 Dose: 300 mg Finasteride (Proscar -) 5 mg PO DAILY [facility] Last Admin: 10/10/18 09:57 Dose: 5 mg Heparin Sodium (Porcine) (Heparin -) 5,000 unit SQ TID [facility] Last Admin: 10/10/18 05:24 Dose: 5,000 unit Meclizine HCl (Antivert -) 25 mg PO BID [facility] Last Admin: 10/10/18 09:57 Dose: 25 mg Metolazone (Zaroxolyn -) 2.5 mg PO DAILY@1330 [facility] Polyethylene Glycol (Miralax (For Daily Use) -) 17 gm PO BID [facility] Last Admin: 10/10/18 10:04 Dose: 17 gm Spironolactone (Aldactone -) 25 mg PO Q2D [facility] Last Admin: 10/10/18 09:57 Dose: 25 mg Tamsulosin HCl (Flomax -) 0.4 mg PO BID@0830,2200 [facility] Last Admin: 10/10/18 09:57 Dose: 0.4 mg Tiotropium [place] (Spiriva Respimat) 1 puff IH DAILY [facility] Last Admin: 10/10/18 10:47 Dose: 1 puff Torsemide (Demadex -) 30 mg PO BIDLASIX [facility] Trazodone HCl (Desyrel -) 50 mg PO DAILY [facility] Last Admin: 10/10/18 09:57 Dose: 50 mg - Objective Vital Signs: Vital Signs Temperature 97.2 F L 10/10/18 10:00 Pulse Rate 64 10/10/18 10:00 Respiratory Rate 10/10/18 10:00 Blood Pressure 116/52 L 10/10/18 10:00 O2 Sat by Pulse Oximetry (%) 93 L 10/10/18 10:00 Constitutional: Yes: Calm, Obese Eyes: Yes: WNL HENT: Yes: WNL Neck: Yes: WNL Cardiovascular: Yes: Regular Rate and Rhythm, S1, S2 Respiratory: Yes: Diminished Gastrointestinal: Yes: Normal Bowel Sounds, Soft Extremities: Yes: WNL Edema: Yes Labs: CBC, BMP 10/10/18 07:30 10/10/18 07:30 Problem List - Problems (1) Chronic hypoxemic respiratory failure Code(s): J96.11 - CHRONIC RESPIRATORY FAILURE WITH HYPOXIA Assessment/Plan Problem List - Problems (1) COPD (chronic obstructive pulmonary disease) Code(s): J44.9 - CHRONIC OBSTRUCTIVE PULMONARY DISEASE, UNSPECIFIED (2) Asthma Code(s): J45.909 - UNSPECIFIED ASTHMA, UNCOMPLICATED (3) Sleep apnea Code(s): G47.30 - SLEEP APNEA, UNSPECIFIED (4) Morbid obesity Code(s): E66.01 - MORBID (SEVERE) OBESITY DUE TO EXCESS CALORIES (5) Atelectasis of both lungs Code(s): J98.11 - ATELECTASIS (6) URI, acute Code(s): J06.9 - ACUTE UPPER RESPIRATORY INFECTION, UNSPECIFIED (7) Shortness of breath Code(s): R06.02 - SHORTNESS OF BREATH Assessment/Plan Do not suspect PNA COPD: not in acute exacerbation Chronic hypoxemic respiratory failure Incentive Spirometry and Ambulate Symptoms and findings on CT seem chronic Should be on LAMA/LABA on discharge No smoking PFTs as an outpatient Will need to get info from previous sleep workup and patient advised the importance of PAP usage at night No Pulmonary contraindication for D/C planning DR ST
[2018-10-10] MEDS ORDERED: METOLAZONE 2.5 MG TABLET (FP) PO SCH (13:30)
[2018-10-10] MEDS ORDERED: TORSEMIDE 10 MG TABLET PO SCH (14:00)
--- NOTE | 2018-10-10 14:08 | DS ---
Physical Exam: SUBJECTIVE: Patient seen and examined. Dizzy and weak a few hours ago while laying down. Pt. endorses sleeping with 5 pillows at night at home. Pt complains of shortness of breath when sleeping. OBJECTIVE: Vital Signs Period Temp Pulse Resp BP Sys/Mason Pulse Ox Last 24 Hr 97.2 F-97.7 F 60-69 18-20 95-124/52-73 93-95 PHYSICAL EXAM GENERAL: The patient is awake, alert, and fully oriented, in no acute distress. EYES: PERRL, extraocular movements intact, sclera anicteric, conjunctiva clear. ENT: Ears normal, nares patent, oropharynx clear without exudates, moist mucous membranes. NECK: Trachea midline, full range of motion, supple. LUNGS: Limited exam d/t body habitus, Decreased breath sounds, no accessory muscle use. HEART: Regular rate and rhythm, S1, S2 without murmur, rub or gallop. ABDOMEN: Soft, nontender, nondistended, normoactive bowel sounds, no guarding, no rebound, no hepatosplenomegaly, no masses. EXTREMITIES: 2+ pulses, warm, well-perfused, no edema. NEUROLOGICAL: Cranial nerves II through XII grossly intact. Normal speech, gait not observed. PSYCH: Normal mood, normal affect. SKIN: Warm, dry, normal turgor, no rashes or lesions noted. LABS Laboratory Results - last 24 hr 10/10/18 10/10/18 07:30 07:30 WBC 15.4 H RBC 4.68 Hgb 14.2 Hct 44.5 MCV 95.0 MCH 30.3 MCHC 31.9 L RDW 14.0 Plt Count 159 MPV 11.8 H Sodium 141 Potassium 3.0 L Chloride 91 L Carbon Dioxide 45 H Anion Gap 5 L BUN 45 H Creatinine 1.4 H Creat Clearance w eGFR 50.70 Random Glucose 85 Calcium 8.4 L Phosphorus 4.0 Magnesium 3.0 H HOSPITAL COURSE: Date of Admission:10/08/18 Date of Discharge: 10/10/18 Pt. admitted for suspected COPD exacerbation. CT Chest showed chronic COPD changes including centrilobar emphysema. Echo showed normal size, function and thickness of heart with EF of 60-65%. Pt. treated with O2 and nebulizer treatments. Hospital course discussed and agreed upon with Pt. and medical staff. Minutes to complete discharge: 32 Discharge Summary Reason For Visit: COPD W/EXACERBATION/SOB Current Active Problems Asthma (Acute) Atelectasis of both lungs (Acute) COPD (chronic obstructive pulmonary disease) (Acute) Chronic hypoxemic respiratory failure (Acute) Gait abnormality (Acute) Morbid obesity (Acute) Shortness of breath (Acute) Sleep apnea (Acute) URI, acute (Acute) Condition: Improved - Instructions Diet, Activity, Other Instructions: You were admitted for generalized weakness You had a CT scan of the head which was normal. You had a CT scan of the chest which showed chronic( long-term) COPD You had an echo which showed a normal functioning heart. Please follow up with your Primary Care Physician within 1 week. Please call ) to schedule an appointment. Please follow up with your Mower Mechanic, Dr. Gutierrez, within 1 week. Please follow up with your Criminal Justice Teacher, Dr. Farias within 1 week. Please continue taking your home medications as prescribed. Please return to the ER if you are experiencing worsening shortness of breath, chest pain, or fever. Referrals: Mor Gutierrez MD [Staff Physician] - 1 Week ON STAFF,NOT [Primary Care Provider] - Noa Farias MD [Staff Physician] - 1 Week Disposition: HOME - Home Medications Comprehensive Discharge Medication List: Ambulatory Orders Albuterol Sulfate [Proair Hfa] 1 puff IH DAILY 10/09/18 Atorvastatin Ca [Lipitor] 40 mg PO DAILY 10/09/18 Budesonide/Formeterol Fumarate [SYMBICORT 160/4.5mcg -] 1 puff IH DAILY Bupropion HCl [Wellbutrin Xl] 300 mg PO DAILY 10/09/18 Finasteride 5 mg PO DAILY 10/09/18 Ipratropium [place] [Atrovent Hfa] 1 puff IH DAILY 10/09/18 Meclizine HCl 25 mg PO BID 10/09/18 Metolazone 2.5 mg PO DAILY 10/09/18 Polyethylene Glycol 3350 [Miralax 119 gm Btl -] 17 gm PO BID 10/09/18 Spironolactone 25 mg PO Q2D 10/09/18 Tamsulosin HCl [Flomax] 0.4 mg PO BID 10/09/18 Tiotropium [place] [Spiriva] 1 puff IH DAILY 10/09/18 Torsemide 30 mg PO BID 10/09/18 traZODone HCL [Trazodone HCl] 50 mg PO DAILY 10/09/18 This patient is new to me today: No Emergency Visit: Yes ED Registration Date: 10/08/18 Care time: The patient presented to the Emergency Department on the above date and was hospitalized for further evaluation of their emergent condition. Critical Care patient: No - Discharge Referral Referred to [facility] Med [facility] No
--- NOTE | 2018-10-10 14:39 | CONSULT ---
Consultation: CONSULT REQUEST: Nephrology Resident HISTORY OF PRESENT ILLNESS: 67yo M with history of COPD, WES, suspected dCHF who presented originally for weaknes found to have volume overload. We were asked to evaluate the pt due to his acute renal insufficiency. Pt reports feeling slightly short of breath when walking to the bathroom still. Pt overall feels improved since admission. Pt has been on aldactone, torsemide, and metolazone throughout his hospital visit with subsequent elevation in Cr which is downtrending currently. Pt denies any other complaints at this time. PMHx: COPD WES dCHF PSHx: Appendectomy SoHx: Tobacco: Former - 1/2ppd for 15 years; quit 2 years prior Alcohol - Denies Drugs - Denies Yellow taxicab starter prior; quit 3 yrs ago Allergies: NKDA Fam Hx: Father - 78yo REVIEW OF SYSTEMS: CONSTITUTIONAL: Present: Weakness Absent: fever, chills, diaphoresis, loss of appetite, weight change CARDIOVASCULAR: Absent: chest pain, syncope, palpitations, irregular heart rate, lightheadedness , peripheral edema RESPIRATORY: Present: MENDIETA Absent: cough, shortness of breath, orthopnea, wheezing, stridor, hemoptysis GASTROINTESTINAL: Absent: abdominal pain, abdominal distension, nausea, vomiting, diarrhea, constipation, melena, hematochezia GENITOURINARY: Absent: dysuria, frequency, urgency, hesitancy, hematuria, flank pain NEUROLOGIC: Absent: headache, focal weakness or paresthesias, dizziness, unsteady gait, seizure, mental status changes, bladder or bowel incontinence PSYCHIATRIC: Absent: anxiety, depression PHYSICAL EXAMINATION Vital Signs - 24 hr 10/09/18 10/09/18 10/09/18 18:00 21:00 21:59 Temperature 97.6 F 97.5 F L Pulse Rate 69 65 Respiratory 19 20 Rate Blood Pressure 114/69 124/73 O2 Sat by Pulse 95 Oximetry (%) 10/10/18 10/10/18 10/10/18 02:00 10:00 13:53 Temperature 97.6 F 97.2 F L 97.7 F Pulse Rate 69 64 60 Respiratory 18 18 20 Rate Blood Pressure 100/56 L 116/52 L 95/56 L O2 Sat by Pulse 93 L Oximetry (%) GENERAL: NAD, awake, alert, and fully oriented, sittingi n chair HEENT: NC/AT, EOMI, NIURKA, sclera anicteric, [id number] MM NECK: No JVD LUNGS: CTA bilaterally. No wheezes, and no crackles. No accessory muscle use. HEART: RRR, normal S1 and S2 without murmur ABDOMEN: Soft, NT/ND, no guarding MUSCULOSKELETAL: No CVA tenderness. EXTREMITIES: 2+ pulses, warm. Trace ankle edema PSYCHIATRIC: Cooperative. Good eye contact. Appropriate mood and affect. SKIN: Warm, dry, no rashes or lesions noted. Laboratory Results - last 24 hr 10/10/18 10/10/18 07:30 07:30 WBC 15.4 H RBC 4.68 Hgb 14.2 Hct 44.5 MCV 95.0 MCH 30.3 MCHC 31.9 L RDW 14.0 Plt Count 159 MPV 11.8 H Sodium 141 Potassium 3.0 L Chloride 91 L Carbon Dioxide 45 H Anion Gap 5 L BUN 45 H Creatinine 1.4 H Creat Clearance w eGFR 50.70 Random Glucose 85 Calcium 8.4 L Phosphorus 4.0 Magnesium 3.0 H Active Medications Generic Name Dose Route Start Last Admin Trade Name Freq PRN Reason Stop Dose Admin Albuterol Sulfate 1 puff 10/10/18 10:00 10/10/18 14:02 Ventolin Hfa Inhaler - IH 1 puff DAILY YOHANNES Administration Atorvastatin Calcium 40 mg 10/10/18 22:00 Lipitor - PO HS YOHANNES Budesonide/Formoterol Fumarate 1 puff 10/10/18 10:00 10/10/18 10:47 Symbicort 160/4.5mcg - IH 1 inh DAILY YOHANNES Administration Bupropion HCl 300 mg 10/10/18 10:00 10/10/18 09:57 Wellbutrin Xl - PO 300 mg DAILY YOHANNES Administration Finasteride 5 mg 10/10/18 10:00 10/10/18 09:57 Proscar - PO 5 mg DAILY YOHANNES Administration Heparin Sodium (Porcine) 5,000 unit 10/10/18 06:00 10/10/18 14:02 Heparin - SQ 5,000 unit TID YOHANNES Administration Meclizine HCl 25 mg 10/10/18 10:00 10/10/18 09:57 Antivert - PO 25 mg BID YOHANNES Administration Metolazone 2.5 mg 10/10/18 13:30 10/10/18 14:02 Zaroxolyn - PO 2.5 mg DAILY@1330 YOHANNES Administration Polyethylene Glycol 17 gm 10/10/18 10:00 10/10/18 10:04 Miralax (For Daily Use) - PO 17 gm BID YOHANNES Administration Spironolactone 25 mg 10/10/18 10:00 10/10/18 09:57 Aldactone - PO 25 mg Q2D YOHANNES Administration Tamsulosin HCl 0.4 mg 10/10/18 08:30 10/10/18 09:57 Flomax - PO 0.4 mg BID@0830,2200 YOHANNES Administration Torsemide 30 mg 10/10/18 14:00 Demadex - PO BIDLASIX YOHANNES Trazodone HCl 50 mg 10/10/18 10:00 10/10/18 09:57 Desyrel - PO 50 mg DAILY YOHANNES Administration ASSESSMENT/PLAN: Acute renal insufficiency Hypokalemia Volume overload (improved from admission) COPD --Urine studies sent, however UUrea not displaying. FeNA is inaccurate in setting of diuretic usage in hospital --Likely component of pre-renal azotemia nonetheless; now downtrending from admission --Can follow in outpatient setting with Dr. Farias for f/u renal studies --Okay to be discharged from nephrology standpoint Dispo: F/u outpt setting. Thank you for this consultation Case discussed with Dr. Jarrett Norman, DO - IM PGY-2 Visit type - Emergency Visit Emergency Visit: Yes ED Registration Date: 10/08/18 Care time: The patient presented to the Emergency Department on the above date and was hospitalized for further evaluation of their emergent condition. - New Patient This patient is new to me today: Yes Date on this admission: 10/10/18 - Critical Care Critical Care patient: No
--- NOTE | 2018-10-10 16:06 | PN ---
Teaching Attending Note Name of Resident: Wei Norman (Nephrology) ATTENDING PHYSICIAN STATEMENT I saw and evaluated the patient. I reviewed the resident's note and discussed the case with the resident. I agree with the resident's findings and plan as documented. Renal Pt is a 67 year old male with pmhx of COPD, obesity and asthma who was admitted with shortness of breath. He is on home oxygen and needed oxygen in the hospital as he was here with his . He was found to have elevated creatinine so I was called to evaluate him. He is a poor historian. He denies history of CKD. He denies nsaid use. He is on diuretics for fluid retention. HE denies dysuria or hematuria. pmhx copd, asthma nkda ros dyspnea on exertion family hx denies Current Medications Generic Name Dose Route Start Last Admin Trade Name Freq PRN Reason Stop Dose Admin Albuterol Sulfate 1 puff 10/10/18 10:00 10/10/18 14:02 Ventolin Hfa Inhaler - IH 1 puff DAILY YOHANNES Administration Atorvastatin Calcium 40 mg 10/10/18 22:00 Lipitor - PO HS YOHANNES Budesonide/Formoterol Fumarate 1 puff 10/10/18 10:00 10/10/18 10:47 Symbicort 160/4.5mcg - IH 1 inh DAILY YOHANNES Administration Bupropion HCl 300 mg 10/10/18 10:00 10/10/18 09:57 Wellbutrin Xl - PO 300 mg DAILY YOHANNES Administration Finasteride 5 mg 10/10/18 10:00 10/10/18 09:57 Proscar - PO 5 mg DAILY YOHANNES Administration Heparin Sodium (Porcine) 5,000 unit 10/10/18 06:00 10/10/18 14:02 Heparin - SQ 5,000 unit TID YOHANNES Administration Meclizine HCl 25 mg 10/10/18 10:00 10/10/18 09:57 Antivert - PO 25 mg BID YOHANNES Administration Metolazone 2.5 mg 10/10/18 13:30 10/10/18 14:02 Zaroxolyn - PO 2.5 mg DAILY@1330 YOHANNES Administration Polyethylene Glycol 17 gm 10/10/18 10:00 10/10/18 10:04 Miralax (For Daily Use) - PO 17 gm BID YOHANNES Administration Spironolactone 25 mg 10/10/18 10:00 10/10/18 09:57 Aldactone - PO 25 mg Q2D YOHANNES Administration Tamsulosin HCl 0.4 mg 10/10/18 08:30 10/10/18 09:57 Flomax - PO 0.4 mg BID@0830,2200 YOHANNES Administration Torsemide 30 mg 10/10/18 14:00 10/10/18 15:06 Demadex - PO 30 mg BIDLASIX YOHANNES Administration Trazodone HCl 50 mg 10/10/18 10:00 10/10/18 09:57 Desyrel - PO 50 mg DAILY YOHANNES Administration renal ultrasound reviewed Laboratory Tests 10/08/18 10/08/18 10/09/18 16:50 17:16 06:06 WBC 12.4 H Hgb Potassium Creatinine 1.7 H Urine Color Ltyellow Ur Specific [place] 1.009 L Urine Protein Negative Urine Glucose (UA) Negative Urine Blood Negative 10/09/18 10/10/18 10/10/18 06:06 07:30 07:30 WBC 15.4 H Hgb 14.2 Potassium 3.0 L Creatinine 1.8 H 1.4 H Urine Color Ur Specific [place] Urine Protein Urine Glucose (UA) Urine Blood cardio s1s2 reg pulm wheeze gi soft obese ext edema neuro awake Impression 1. WILLIAM vs CKD - with improving renal function 2. asthma 3. copd 4. fluid retention 5. obesity Plan - renal function is improving - urine negative for protein - echo reviewed - monitor renal function - he will need a renal workup - spoke to primary team, they are discharging pt today
--- NOTE | 2018-10-10 16:57 | PN ---
Teaching Attending Note Name of Resident: Glenn Velasquez ATTENDING PHYSICIAN STATEMENT I saw and evaluated the patient. I reviewed the resident's note and discussed the case with the resident. I agree with the resident's findings and plan as documented. SUBJECTIVE: Patient is feeling better with no acute distress. OBJECTIVE: Vital Signs Temperature 97.7 F 10/10/18 13:53 Pulse Rate 60 10/10/18 13:53 Respiratory Rate 20 10/10/18 13:53 Blood Pressure 95/56 L 10/10/18 13:53 O2 Sat by Pulse Oximetry (%) 93 L 10/10/18 10:00 GENERAL: Awake, alert, and fully oriented, in no acute distress. HEAD: Normal with no signs of trauma. EYES: CRISTHIAN, EOMI,conjunctiva injected left more than right. EARS, NOSE, THROAT: Oropharynx clear without exudates. MMM NECK: Normal range of motion, supple ,no jvD, or masses. LUNGS: decreased BS BL, no wheezing , on home oxygen HEART: RRR, normal S1 and S2 without murmur, rub or gallop. ABDOMEN: Obese. large abdomen, soft, NT, BS positive x 4 quadrants. No guarding , no rebound tenderness. EXTREMITIES: 2+ radial pulses b/l, warm, well-perfused. NEUROLOGICAL: Cranial nerves II-XII intact. Normal speech. PSYCHIATRIC: Cooperative. Good eye contact. SKIN: Warm, dry. Chronic hyperpigmentation skin changes of LEs. CBCD WBC 15.4 K/mm3 (4.0-10.0) H 10/10/18 07:30 RBC 4.68 M/mm3 (4.00-5.60) 10/10/18 07:30 Hgb 14.2 GM/dL (11.7-16.9) 10/10/18 07:30 Hct 44.5 % (35.4-49) 10/10/18 07:30 MCV 95.0 fl (80-96) 10/10/18 07:30 MCHC 31.9 g/dl (32.0-35.9) L 10/10/18 07:30 RDW 14.0 % (11.9-15.9) 10/10/18 07:30 Plt Count 159 K/MM3 (134-434) 10/10/18 07:30 MPV 11.8 fl (7.5-11.1) H 10/10/18 07:30 CMP Sodium 141 mmol/L (136-145) 10/10/18 07:30 Potassium 3.0 mmol/L (3.5-5.1) L 10/10/18 07:30 Chloride 91 mmol/L (98-107) L 10/10/18 07:30 Carbon Dioxide 45 mmol/L (21-32) H 10/10/18 07:30 Anion Gap 5 MMOL/L (8-16) L 10/10/18 07:30 BUN 45 mg/dL (7-18) H 10/10/18 07:30 Creatinine 1.4 mg/dL (0.55-1.3) H 10/10/18 07:30 Creat Clearance w eGFR 50.70 (>60) 10/10/18 07:30 Random Glucose 85 mg/dL (74-106) 10/10/18 07:30 Calcium 8.4 mg/dL (8.5-10.1) L 10/10/18 07:30 Total Bilirubin 0.6 mg/dL (0.2-1) 10/09/18 06:06 AST 31 U/L (15-37) 10/09/18 06:06 ALT 38 U/L (13-61) 10/09/18 06:06 Alkaline Phosphatase 115 U/L (45-117) 10/09/18 06:06 Total Protein 7.2 g/dl (6.4-8.2) 10/09/18 06:06 Albumin 3.6 g/dl (3.4-5.0) 10/09/18 06:06 CARDIAC ENZYMES Creatine Kinase 352 IU/L (26-308) H 10/08/18 16:50 Troponin I < 0.02 ng/ml (0.00-0.05) 10/08/18 16:50 Current Medications Generic Name Dose Route Start Last Admin Trade Name Freq PRN Reason Stop Dose Admin Albuterol Sulfate 1 puff 10/10/18 10:00 10/10/18 14:02 Ventolin Hfa Inhaler - IH 1 puff DAILY YOHANNES Administration Atorvastatin Calcium 40 mg 10/10/18 22:00 Lipitor - PO HS YOHANNES Budesonide/Formoterol Fumarate 1 puff 10/10/18 10:00 10/10/18 10:47 Symbicort 160/4.5mcg - IH 1 inh DAILY YOHANNES Administration Bupropion HCl 300 mg 10/10/18 10:00 10/10/18 09:57 Wellbutrin Xl - PO 300 mg DAILY YOHANNES Administration Finasteride 5 mg 10/10/18 10:00 10/10/18 09:57 Proscar - PO 5 mg DAILY YOHANNES Administration Heparin Sodium (Porcine) 5,000 unit 10/10/18 06:00 10/10/18 14:02 Heparin - SQ 5,000 unit TID YOHANNES Administration Meclizine HCl 25 mg 10/10/18 10:00 10/10/18 09:57 Antivert - PO 25 mg BID YOHANNES Administration Metolazone 2.5 mg 10/10/18 13:30 10/10/18 14:02 Zaroxolyn - PO 2.5 mg DAILY@1330 YOHANNES Administration Polyethylene Glycol 17 gm 10/10/18 10:00 10/10/18 10:04 Miralax (For Daily Use) - PO 17 gm BID YOHANNES Administration Spironolactone 25 mg 10/10/18 10:00 10/10/18 09:57 Aldactone - PO 25 mg Q2D YOHANNES Administration Tamsulosin HCl 0.4 mg 10/10/18 08:30 10/10/18 09:57 Flomax - PO 0.4 mg BID@0830,2200 YOHANNES Administration Torsemide 30 mg 10/10/18 14:00 10/10/18 15:06 Demadex - PO 30 mg BIDLASIX YOHANNES Administration Trazodone HCl 50 mg 10/10/18 10:00 10/10/18 09:57 Desyrel - PO 50 mg DAILY YOHANNES Administration CXR shows bibasilar consolidation ASSESSMENT AND PLAN: Patient is a 67 year old male with history of COPD on home oxygen 2L daily, congestive heart failure, obstructive sleep apnea, presents with complaint of weakness and shortness of breath. # COPD stable on 2 Liter oxygen ,continue Incentive Spirometry at home, continue home meds. PFTs as an outpatient # WILLIAM with hypokalemia - s/p renal sonogram within Normal level , avoid nephrotoxic agents. will replete Potassium given potasisum 40meq in am and in pm # Morbid Obesity - diet and weight loss recommended. DVT prophylaxis - Heparin 5000u sq tid. discharge patient home today
[2018-10-10 18:14] VITALS: BP 110/60; PULSE 65; TEMP 97.5
[2018-10-10] MEDS ORDERED: ATORVASTATIN CA 40 MG TABLET (FP) PO SCH (22:00)
--- NOTE | 2018-10-13 10:50 | EKG ---
Test Reason : Blood Pressure : / mmHG Vent. Rate : 074 BPM Atrial Rate : 074 BPM P-R Int : 174 ms QRS Dur : 148 ms QT Int : 440 ms P-R-T Axes : 058 -11 024 degrees QTc Int : 488 ms NORMAL SINUS RHYTHM RIGHT BUNDLE BRANCH BLOCK ABNORMAL ECG WHEN COMPARED WITH ECG OF 08-OCT-2018 17:07, PREMATURE VENTRICULAR COMPLEXES ARE NO LONGER PRESENT Confirmed by ASHLEY WILCOX MD ([id number]) on 10/13/2018 10:50:06 AM Referred By: Confirmed By:ASHLEY WILCOX MD
== END 2018-10-10 21:12 | disposition home or self-care (01) | DRG 191 ==
LOC: JER 16:05 → JERBED 19:21 → J4S 10-09 12:21
PROVIDERS: ADMIT Internal Medicine; ATTEND Internal Medicine
DX: J44.1 Chronic obstructive pulmonary disease with (acute) exacerbation (principal); N17.9 Acute kidney failure, unspecified; E87.3 Alkalosis; J98.11 Atelectasis; J96.11 Chronic respiratory failure with hypoxia; I50.32 Chronic diastolic (congestive) heart failure; Z68.42 Body mass index [BMI] 45.0-49.9, adult; E66.01 Morbid (severe) obesity due to excess calories; E87.6 Hypokalemia; Z99.81 Dependence on supplemental oxygen; E86.0 Dehydration; G47.33 Obstructive sleep apnea (adult) (pediatric); R73.03 Prediabetes; R26.9 Unspecified abnormalities of gait and mobility
CPT/HCPCS: 36415; 70450-TC; 71045-TC-FY; 71250-TC; 76775-TC; 80048; 80053; 80061; 81003; 81015; 82550; 82553; 83036; 83721; 83735; 83880; 84100; 84484; 85025; 85027; 93005; 93010; 93306-TC; 94010; 94640; 97116-GP; 97161-GP; 99285-25; J1644

== ENCOUNTER 2018-10-20 12:25 | Emergency (ER) | payer OTHER ==
[2018-10-20 12:31] VITALS: BMI 49.4
--- NOTE | 2018-10-20 13:22 | PDOC ---
History of Present Illness - General Chief Complaint: Lightheaded Stated Complaint: Lightheaded Time Seen by Provider: 10/20/18 13:07 - History of Present Illness Initial Comments: The patient is a 68M w/ a history of HTN, HLD, BPH, COPD (2LNC at home), and HFpEF who presents from clinic for evaluation of dizziness. The patient reports that he has had persistent dizziness (lightheadedness) since the time of his most recent discharge approximately 2 weeks ago. He reports that the dizziness is worse with standing but is not otherwise positional. He reports falling approximately 3 weeks ago but not since being discharged. The patient was to follow up in clinic today; however, he was dizzy in the waiting room and felt as if he were about to pass out and was subsequently transferred here for evaluation. He endorses a chronic, dry cough He denies fevers/chills, VALENCIA, vision changes, chest pain, abdominal pain, N/V/C/D , or changes in sensation 10/20/18 13:24 Past History - Past Medical History Allergies/Adverse Reactions: Allergies Allergy/AdvReac Type Severity Reaction Status Date / Time No Known Allergies Allergy Verified 10/20/18 12:31 Home Medications: Ambulatory Orders Albuterol Sulfate [Proair Hfa] 1 puff IH DAILY 10/09/18 Atorvastatin Ca [Lipitor] 40 mg PO DAILY 10/09/18 Budesonide/Formeterol Fumarate [SYMBICORT 160/4.5mcg -] 1 puff IH DAILY Bupropion HCl [Wellbutrin Xl] 300 mg PO DAILY 10/09/18 Finasteride 5 mg PO DAILY 10/09/18 Ipratropium [place] [Atrovent Hfa] 1 puff IH DAILY 10/09/18 Meclizine HCl 25 mg PO BID 10/09/18 Metolazone 2.5 mg PO DAILY 10/09/18 Polyethylene Glycol 3350 [Miralax 119 gm Btl -] 17 gm PO BID 10/09/18 Spironolactone 25 mg PO Q2D 10/09/18 Tamsulosin HCl [Flomax] 0.4 mg PO BID 10/09/18 Tiotropium [place] [Spiriva] 1 puff IH DAILY 10/09/18 Torsemide 30 mg PO BID 10/09/18 traZODone HCL [Trazodone HCl] 50 mg PO DAILY 10/09/18 COPD: Yes (CHF) CHF: No DVT: No HTN: Yes Hypercholesterolemia: Yes - Surgical History Appendectomy: Yes - Suicide/Smoking/Psychosocial Hx Smoking History: Never smoked Have you smoked in the past 12 months: No Information on smoking cessation initiated: No Hx Alcohol Use: No Drug/Substance Use Hx: No Substance Use Type: None Hx Substance Use Treatment: No Review of Systems - Review of Systems Able to Perform ROS?: Yes Comments:: GENERAL/CONSTITUTIONAL: No fever or chills HEAD, EYES, EARS, NOSE AND THROAT: No change in vision. No ear pain or discharge. No sore throat CARDIOVASCULAR: No chest pain RESPIRATORY: No wheezing, or hemoptysis GASTROINTESTINAL: No nausea, vomiting, diarrhea or constipation GENITOURINARY: No dysuria, frequency, or change in urination MUSCULOSKELETAL: No joint or muscle swelling or pain SKIN: No rash NEUROLOGIC: No headache, vertigo, loss of consciousness, or change in strength/ sensation ENDOCRINE: No increased thirst. No abnormal weight change HEMATOLOGIC/LYMPHATIC: No anemia, easy bleeding, or history of blood clots ALLERGIC/IMMUNOLOGIC: No hives or skin allergy 10/20/18 13:27 Is the patient limited Telugu proficient: No *Physical Exam - Vital Signs Last Vital Signs Temp Pulse Resp BP Pulse Ox 97.2 F L 64 18 92/57 L 95 10/20/18 12:28 10/20/18 12:28 10/20/18 12:28 10/20/18 12:28 10/20/18 12:28 - Physical Exam Comments: GENERAL: Awake, alert, and fully oriented, in no acute distress HEAD: No signs of trauma, normocephalic, atraumatic EYES: PERRLA, EOMI, sclera anicteric, conjunctiva clear ENT: Hearing grossly normal, nares patent, oropharynx clear without exudates. Moist mucosa LUNGS: on 4LNC w/o distress, decreased LLL breath sounds, no wheezes/crackles/ rhales appreciated HEART: Regular rate and rhythm, normal S1 and S2, no murmurs, rubs or gallops, peripheral pulses normal and equal bilaterally ABDOMEN: Soft, nontender, normoactive bowel sounds. No guarding, no rebound. No masses EXTREMITIES : Normal inspection, Normal range of motion, no edema. No clubbing or cyanosis NEUROLOGICAL: Cranial nerves II through XII grossly intact. Normal speech, normal gait, no focal sensorimotor deficits SKIN: Warm, Dry, normal turgor, no rashes or lesions noted 10/20/18 13:37 ED Treatment Course - LABORATORY CBC & Chemistry Diagram: 10/20/18 14:20 10/20/18 14:20 Medical Decision Making - Medical Decision Making The patient is a 68M who presents for evaluation of chronic dizziness and MENDIETA Spoke with Dr. Velasquez who sent the patient from clinic. Per their report that patient was endorsing dysuria and was hypotensive at clinic. He was then sent over for evaluation of UTI/sepsis. Patient denies dysuria today as well as hematuria or abdominal pain UA w/o evidence of UTI Leukocytosis to 15, at baseline of other visits No anemia Hypokalemia to 3.3 Cr 1.4 at baseline Trop I neg 10/20/18 15:18 Plan to 1/2 Torsemide. Possible that patient's low BP is contributing to dizziness. Further patient's lyte disturbances and contraction alkylosis could be 2/2 Torsemide use. Patient instructed to reduce Torsemide dose from BID to daily. Patient also instructed to f/u w/ PCP within week. F/u w/ PCP Plan for D/C Discharge instructions and return precautions given Patient verbalized understanding and is in agreement 10/20/18 17:01 *DC/Admit/Observation/Transfer Diagnosis at time of Disposition: Dizziness - Discharge Dispostion Disposition: HOME Condition at time of disposition: Stable Decision to Admit order: No - Referrals Referrals: Benitez Heck MD [Primary Care Provider] - - Patient Instructions Printed Discharge Instructions: DI for Dizziness-Nonvertigo Additional Instructions: You were seen in the Emergency Department today for dizziness. It is possible that you dizziness may be due to your multiple blood pressure medications. We plan to half the dose of your Torsemide. Instead of taking it twice a day. Only take it once a day. Please follow up this week with your primary care provider. Please have him review your lab work and discuss the adjustment of your blood pressure medications. Please review the handouts provided at discharge. Return to the Emergency Department if you develop fevers/chills, worsening symptoms, pass out, chest pain, worsening shortness of breath, or any new/ concerning symptoms. - Post Discharge Activity
--- NOTE | 2018-10-20 13:56 | PDOC ---
Attending Attestation - Resident Resident Name: Nick Ocampo - ED Attending Attestation I have performed the following: I have examined & evaluated the patient, The case was reviewed & discussed with the resident, I agree w/resident's findings & plan, Exceptions are as noted - HPI HPI: 10/20/18 13:55 68y M hx of htn, copd (2L NC at [facility]), recent admission for COPD and d/c 10 da6ys ago - presents with lightheaded/dizziness at clinic so was sent for evalutaion. Pt notes she has had chronic dizziness, and has frequent falls but none recently. The patient's dizziness states that he feels unsteady when he is standing he denies jose room spinning dizziness denies any chest pain, palpitations, nausea, vomiting, double vision, blurry vision, dysarthria, focal numbness, tingling, weakness, abdominal pain, diarrhea, melena, BPR, fever, chills. The patient also endorses some dyspnea exertion which he states is chronic, states that he feels out of breath when he is walking around and needs to sit down and rest - states that this has been going on for at least several months she is on 2 L of oxygen at baseline. He denies any cough, crease leg swelling, calf pain, hemoptysis. GENERAL: The patient is awake, alert, and fully oriented, Nontoxic - in no acute distress, morbidly obese HEAD: Normocephalic, atraumatic. EYES: extraocular movements intact, sclera anicteric, conjunctiva clear. ENT: Normal voice, Moist mucous membranes, o2 in place NECK: Normal range of motion, supple LUNGS: Breath sounds equal, clear to auscultation bilaterally. No wheezes, no rhonchi, no rales. HEART: Regular rate and rhythm, normal S1 and S2 without murmur, rub or gallop. ABDOMEN: Soft, nontender, No guarding, no rebound. . No CVA tenderness EXTREMITIES: Normal range of motion, trace edema. Negative Homans, no calf tenderness NEUROLOGICAL: No facial assymetry, Normal speech, normal rapid alternating movements normal finger to nose negative Romberg, strength symmetric in upper and lower extremities. PSYCH: Normal mood, normal affect. SKIN: Warm, Dry, normal turgor, Will check labs to rule out anemia, metabolic derangements as a cause of his lightheadedness but this seems chronic. - Medical Decision Making 10/20/18 16:51 The patient's blood work was reviewed the patient has a metabolic alkalosis, a speck may be secondary to his torsemide use it is possible that his chronic lightheadedness may also be secondary to a lotion blood pressure. Decrease the patient's torsemide we'll have the patient follow-up with his primary care doctor. Discussed with the clinic who sent the patient apparently the patient has been having some dysuria and there was a primary concern and the reason why they sent him to the ER. Urine is negative for occult infection Discharge with primary care follow-up Heart Score/ECG Review - ECG Impressions Comment:: 10/20/18 14:02 Twelve-lead EKG was performed and reviewed by me. There is normal sinus rhythm with a normal rate. rate of 62 The axis is normal. Right bundle-branch block No changes when compraed with prior EKG dated 10/08/18
[2018-10-20 14:27] LABS: VENOUS PC02 56.3 mmHg (38-52); VENOUS PH 7.48 (7.32-7.42); VENOUS PO2 43.8 mmHg (28-48)
[2018-10-20 14:28] LABS: HEMATOCRIT 46.4 % (35.4-49); HEMOGLOBIN 14.5 GM/dL (11.7-16.9); MCH 29.8 pg (25.7-33.7); MCHC 31.3 g/dl (32.0-35.9); MEAN CELL VOLUME 95.1 fl (80-96); MEAN PLT VOLUME 11.3 fl (7.5-11.1); PLATELET COUNT 182 K/MM3 (134-434); RBC 4.88 M/mm3 (4.00-5.60); RDW 14.3 % (11.9-15.9); WHITE BLOOD COUNT 15.2 K/mm3 (4.0-10.0)
[2018-10-20 14:38] LABS: URINE APPEARANCE CLEAR; URINE BILIRUBIN NEGATIVE (<2.0 mg/dL); URINE COLOR YELLOW; URINE GLUCOSE (UA) NEGATIVE (NEGATIVE); URINE KETONE NEGATIVE (NEGATIVE); URINE LEUK ESTERASE NEGATIVE (NEGATIVE); URINE NITRITE NEGATIVE (NEGATIVE); URINE PROTEIN NEGATIVE (NEGATIVE); URINE UROBILINOGEN NEGATIVE mg/dL (0.2-1.0)
[2018-10-20 15:20] LABS: ALBUMIN 3.4 g/dl (3.4-5.0); ALK PHOS 103 U/L (45-117); ANION GAP 8 MMOL/L (8-16); BLOOD UREA NITROGEN 32 mg/dL (7-18); CALCIUM 8.3 mg/dL (8.5-10.1); CHLORIDE 87 mmol/L (98-107); CO2 40 mmol/L (21-32); CREATININE 1.4 mg/dL (0.55-1.3); GLUCOSE,RANDOM 95 mg/dL (74-106); POTASSIUM 3.3 mmol/L (3.5-5.1); SGOT/AST 35 U/L (15-37); SGPT/ALT 31 U/L (13-61); SODIUM 134 mmol/L (136-145); TOT PROT 6.8 g/dl (6.4-8.2)
[2018-10-20 17:29] VITALS: BP 107/53; PULSE 66; TEMP 97.9
--- NOTE | 2018-10-20 18:21 | EKG ---
Test Reason : Blood Pressure : / mmHG Vent. Rate : 062 BPM Atrial Rate : 062 BPM P-R Int : 178 ms QRS Dur : 152 ms QT Int : 436 ms P-R-T Axes : 052 -06 011 degrees QTc Int : 442 ms NORMAL SINUS RHYTHM RIGHT BUNDLE BRANCH BLOCK ABNORMAL ECG WHEN COMPARED WITH ECG OF 08-OCT-2018 20:54, NO SIGNIFICANT CHANGE WAS FOUND Confirmed by ASHLEY WILCOX MD ([id number]) on 10/20/2018 6:20:59 PM Referred By: Confirmed By:ASHLEY WILCOX MD
== END 2018-10-20 20:06 | disposition home or self-care (01) ==
LOC: JER 12:25
DX: R42 Dizziness and giddiness (principal); R26.89 Other abnormalities of gait and mobility; Z91.81 History of falling; I11.0 Hypertensive heart disease with heart failure; I50.9 Heart failure, unspecified; J44.9 Chronic obstructive pulmonary disease, unspecified; Z99.81 Dependence on supplemental oxygen; E78.00 Pure hypercholesterolemia, unspecified; N40.0 Benign prostatic hyperplasia without lower urinary tract symptoms
CPT/HCPCS: 36415; 71045-TC-FY; 80053; 81003; 82550; 82553; 82803; 84484; 85027; 93005; 93010; 99283-25

== ENCOUNTER 2019-06-07 22:56 | Emergency (ER) | payer OTHER ==
--- NOTE | 2019-06-07 23:08 | PDOC ---
History of Present Illness - General Stated Complaint: SOB Time Seen by Provider: 06/07/19 23:08 History Source: Patient Exam Limitations: No Limitations - History of Present Illness Initial Comments: Pt is a 68 yo M, with PMH of HTN, HLD, BPH, COPD (2L NC home O2), and dCHF, who is presenting via EMS with his also in the ambulance. Pt states his had chest pain and the pt was "worried for his ". The pt used his home O2 dose in the ambulance, and EMS was concerned that he was registered. Pt complains of his baseline SOB and non-productive cough, which was unchanged today. Pt states he currently feels like his baseline, and denies any SOB or chest pain at this time. Pt states his breathing and LE edema has actually improved since his last discharge from the hospital. Pt denies any recent fevers /chills, headache, vision changes, syncope, chest pain, palpitations, nausea/ vomiting, abdominal pain, urinary symptoms, diarrhea/constipation, or leg swelling from baseline. Allergies: NKDA PCP: [facility] Pulm: Brenda Cards: [place] Social: Pt denies any cigarette, alcohol, or drug use. Pt denies any recent travel or sick contacts. Surgical: no relevant history. Family: no relevant history. 06/08/19 00:23 Past History - Travel Traveled outside of the country in the last 30 days: No Close contact w/someone who was outside of country & ill: No - Past Medical History Allergies/Adverse Reactions: Allergies Allergy/AdvReac Type Severity Reaction Status Date / Time No Known Allergies Allergy Verified 06/07/19 23:20 Home Medications: Ambulatory Orders Albuterol Sulfate [Proair Hfa] 1 puff IH DAILY 10/09/18 Atorvastatin Ca [Lipitor] 40 mg PO DAILY 10/09/18 Budesonide/Formeterol Fumarate [SYMBICORT 160/4.5mcg -] 1 puff IH DAILY Bupropion HCl [Wellbutrin Xl] 300 mg PO DAILY 10/09/18 Finasteride 5 mg PO DAILY 10/09/18 Ipratropium [place] [Atrovent Hfa] 1 puff IH DAILY 10/09/18 Meclizine HCl 25 mg PO BID 10/09/18 Metolazone 2.5 mg PO DAILY 10/09/18 Polyethylene Glycol 3350 [Miralax 119 gm Btl -] 17 gm PO BID 10/09/18 Spironolactone 25 mg PO Q2D 10/09/18 Tamsulosin HCl [Flomax] 0.4 mg PO BID 10/09/18 Torsemide 30 mg PO BID 10/09/18 traZODone HCL [Trazodone HCl] 50 mg PO DAILY 10/09/18 Finasteride 5 mg PO DAILY #90 tablet 01/24/19 Albuterol Sulfate Inhaler - [Ventolin Hfa Inhaler -] 1 - 2 inh PO Q4H PRN #1 inhaler 02/16/19 Ketoconazole 2% Cream [Nizoral 2% Cream -] 1 applic TP DAILY #1 cream 03/02/19 COPD: Yes (CHF) CHF: No DVT: No HTN: Yes Hypercholesterolemia: Yes - Surgical History Appendectomy: Yes - Suicide/Smoking/Psychosocial Hx Smoking History: Never smoked Have you smoked in the past 12 months: No Hx Alcohol Use: No Drug/Substance Use Hx: No Substance Use Type: None Hx Substance Use Treatment: No Review of Systems - Review of Systems Able to Perform ROS?: Yes (poor historian) Is the patient limited [place] Citizen proficient: No Constitutional: Yes: Weight Stable. No: Fever, Loss of Appetite, Malaise, Weakness HEENTM: No: Blurred Vision, Nose Congestion, Throat Pain Respiratory: Yes: Cough (non-productive cough at baseline), Shortness of Breath , SOB with Exertion. No: Orthopnea, SOB at Rest, Wheezing, Productive cough, Hemoptysis Cardiac (ROS): Yes: Edema (improved from last discharge). No: Chest Pain, Irregular Heart Rate, Lightheadedness, Palpitations, Syncope, Chest Tightness ABD/GI: No: Constipated, Diarrhea, Nausea, Poor Appetite, Poor Fluid Intake, Vomiting : No: Burning, Pain Musculoskeletal: No: Back Pain, Joint Pain, Muscle Pain, Muscle Weakness Integumentary: No: Rash Neurological: No: Headache, Weakness, Dizziness Psychiatric: No: Change in Appetite Endocrine: Yes: Increased Urine (increased urine output 2/2 to starting lasix) Hematologic/Lymphatic: No: Anemia, Blood Clots, Easy Bleeding, Easy Bruising All Other Systems: Reviewed and Negative *Physical Exam - Vital Signs Vital Signs Temp Pulse Resp BP Pulse Ox 97.2 F L 76 20 98/51 L 98 06/07/19 22:56 06/07/19 22:56 06/07/19 22:56 06/07/19 22:56 06/07/19 22:56 06/08/19 00:15 - Physical Exam Comments: Vitals stable on 2L O2 (home dose), pt afebrile. Pt in NAD, sitting comfortably in a chair. Morbidly obese body habitus. Pt alert and oriented x3. hospital attendant generally intact, muscular strength and sensation intact. No midline spinal tenderness, step-offs, or crepitus. Head normocephalic, atraumatic. Eyes PERRLA, EOMI. Oropharynx without erythema or exudates, no LAD b/l. No nasal congestion, hearing intact. Clear heart sounds, S1/S2, no JVD, or heart murmur. B/l pitting edema to upper shins (pt states better than last admission). Poor air movement, diminished breath sounds b/l, with end-expiratory wheezing. No crackles or accessory muscle use noted. No abdominal or CVA tenderness to palpation, no rebound, no guarding. Abdomen soft, protuberant, and with normoactive bowel sounds. Skin without jaundice or rash. 06/08/19 00:11 Medical Decision Making - Medical Decision Making Pt was seen at bedside, also will be seen by attending Dr. Henry. Pt presenting via EMS with his also in the ambulance. Pt states his had chest pain and the pt was "worried for his ". The pt used his home O2 dose in the ambulance, and EMS was concerned that he was registered. Pt complains of his baseline SOB and non-productive cough, which was unchanged today. Pt states he currently feels like his baseline, and denies any SOB or chest pain at this time. Pt states his breathing and LE edema has actually improved since his last discharge from the hospital. Pt denies any recent fevers/chills, headache, vision changes, syncope, chest pain, palpitations, nausea/vomiting, abdominal pain, urinary symptoms, diarrhea/constipation, or leg swelling from baseline. Providing 3 amp duoneb to improve pt wheezing and air movement. Will continue to reassess pt and monitor for symptomatic improvement. Likely discharge to home if pt feeling well after breathing treatments. 06/08/19 00:20 Pt states breathing improved after breathing treatments. Pt moving better air, less expiratory wheeze. Pt can be discharged to home with follow-up. Pt advised to follow-up with PCP in 1-2 days. Strict return precautions provided with pt understanding. 06/08/19 00:59 *DC/Admit/Observation/Transfer Diagnosis at time of Disposition: COPD (chronic obstructive pulmonary disease) Qualifiers: COPD type: unspecified COPD Qualified Code(s): J44.9 - Chronic obstructive pulmonary disease, unspecified - Discharge Dispostion Disposition: HOME Condition at time of disposition: Good Decision to Admit order: No - Referrals Referrals: Benitez Heck MD [Staff Physician] - Mor Gutierrez MD [Staff Physician] - - Patient Instructions Printed Discharge Instructions: DI for Chronic Obstructive Pulmonary Disease Additional Instructions: You were seen in the ER today for shortness of breath. Your breathing improved after a nebulizer treatment. Please follow-up with your primary care doctor and commercial lines account assistant (Dr. Gutierrez) within 1-2 days to discuss your visit and make sure your symptoms have improved. Please return to the ER if you have any worsening pain, development of fevers or chills, loss of consciousness, inability to tolerate food or fluids, or any other concerns. - Post Discharge Activity
[2019-06-07 23:41] VITALS: PULSE 76; TEMP 97.2; BMI 47.9
[2019-06-07] MEDS ORDERED: ALBUTEROL SO4 2.5/IPRATROPIUM 0.5 INH SOL 3 ML VIAL.NEB. NEB ONE (23:55)
[2019-06-08] MEDS ORDERED: ALBUTEROL SO4 2.5/IPRATROPIUM 0.5 INH SOL 3 ML VIAL.NEB. NEB ONE (00:06)
--- NOTE | 2019-06-08 00:26 | PDOC ---
Documentation entered by Crissy Alcocer SCRIBE, acting as scribe for Larry Henry MD. Larry Henry MD: This documentation has been prepared by the Carlyn das Nirvannie, SCRIBE, under my direction and personally reviewed by me in its entirety. I confirm that the documentation accurately reflects all work, treatment, procedures, and medical decision making performed by me. Attending Attestation - Resident Resident Name: Jane Barraza - ED Attending Attestation I have performed the following: I have examined & evaluated the patient, The case was reviewed & discussed with the resident, I agree w/resident's findings & plan, Exceptions are as noted - HPI HPI: 06/07/19 23:55 The patient is a 68 year old male, with a significant past medical history of HTN, HLD, BPH, COPD (2LNC at home), and HFpEF, who presents with SOB. Pt states that he came with his , who is in the ER for chest pain. While riding in the ambulance with her, he states that he became SOB because he was not on oxygen. He uses 2L NC at all times but did not have it in the ambulance. EMS placed him on their oxygen and, upon arrival to the ED, registered him as a patient along with his . Pt currently denies any symptoms. Denies CP/SOB. Denies F/C. Denies leg swelling. He states that he does not wish to be evaluated in the ED. Allergies: NKDA 06/08/19 00:19 - Physicial Exam PE: 06/07/19 23:55 GENERAL: Awake, alert, and fully oriented, in no acute distress. HEAD: No signs of trauma EYES: PERRLA, EOMI, sclera anicteric, conjunctiva clear ENT: Auricles normal inspection, hearing grossly normal, nares patent, oropharynx clear without exudates. Moist mucosa NECK: Nontender, no stepoffs, Normal ROM, supple, no lymphadenopathy, JVD, or masses LUNGS: + Mild expiratory wheezing HEART: Regular rate and rhythm, normal S1 and S2, no murmurs, rubs or gallops ABDOMEN: Soft, nontender, normoactive bowel sounds. No guarding, no rebound. No masses EXTREMITIES: Normal range of motion, no edema. No clubbing or cyanosis. No cords, erythema, or tenderness NEUROLOGICAL: Cranial nerves II through XII intact. 5/5 strength and sensation in all extremities, Normal speech, normal gait, normal cerebellar function SKIN: Warm, Dry, normal turgor, no rashes or lesions noted. - Medical Decision Making 06/08/19 00:24 68 M who accompanies his to the ED, registered by EMS because he became SOB en route to the ED while off his home O2. Pt with no complaints at this time. Normal vitals. Does not wish to have ED evaluation. Lung exam notable for mild wheezing, likely 2/2 pt's known COPD. - Will administer single duoneb for wheezing Pt is well appearing, with normal vitals. Clinically stable for DC at this time. I discussed the physical exam findings, ancillary test results and final diagnoses with the patient. I answered all of the patient's questions. The patient was satisfied with the care received and felt comfortable with the discharge plan and treatment plan. The patient agrees to follow up with the primary care physician within 24-72 hours.
[2019-06-08 01:45] VITALS: BP 106/58
== END 2019-06-08 01:47 | disposition home or self-care (01) ==
LOC: JER 22:56
PROC: 3E0F7GC Introduction of Other Therapeutic Substance into Respiratory Tract, Via Natural or Artificial Opening (ICD-10-PCS; principal; 2019-06-07)
DX: J44.9 Chronic obstructive pulmonary disease, unspecified (principal); E78.00 Pure hypercholesterolemia, unspecified; I10 Essential (primary) hypertension; E78.5 Hyperlipidemia, unspecified; N40.0 Benign prostatic hyperplasia without lower urinary tract symptoms
CPT/HCPCS: 99281-25